=== PATIENT | female | born 1970 | race Caucasian/White ===

== ENCOUNTER 2018-12-13 11:01 | Observation (INO) | payer OTHER, SELFPAY ==
[2018-12-13 11:02] VITALS: BP 147/91; PULSE 94; RESP 17; TEMP 36.8; O2SAT 96; BMI 39.0
--- NOTE | 2018-12-13 12:05 | CT_ITS ---
STUDY: CT ABDOMEN AND PELVIS WITHOUT CONTRAST REASON FOR EXAM: Female, 48 years old. Left flank pain. RADIATION DOSAGE (If Supplied By Facility): CTDIvol = ( 14.80 ) mGy, DLP = ( 725.88 ) mGycm TECHNIQUE: Transaxial images were obtained from the dome of the diaphragm to the symphysis pubis without oral contrast, and without intravenous contrast. Sagittal and coronal images were reconstructed. Individualized dose optimization techniques were used for this CT. COMPARISON: None. FINDINGS: The visualized lung bases are unremarkable. The visualized portions of the heart are within normal limits. Normal liver. Normal gallbladder and extrahepatic biliary system. Normal spleen. Normal pancreas. Normal bilateral adrenal glands. Normal right kidney. There is a 1.5 cm x 0.8 cm calculus in the left renal pelvis causing a mild degree of left hydronephrosis. There is a small hiatal hernia. Normal small intestine. Normal colon. The appendix is visualized and appears normal. Normal abdominal aorta. Normal inferior vena cava. There is borderline retroperitoneal lymphadenopathy with enlarged nodes no greater than 10mm in the short axis diameter. Normal urinary bladder. Normal abdominal wall. Disc space narrowing at the L5-S1 level with spondylolysis. Mild anterior spondylosis at the L3-L4 level. CT/Abdomen/Pelvis without Cont IMPRESSION: 1.5 cm x 0.8 cm calculus in the left renal pelvis causing mild degree of left hydronephrosis. Electronically Signed: Rick Virgen, at 13:20 EDT , Service support ,
[2018-12-13] MEDS: 0.9% Normal Saline 1,000 ML 1000 ML IV (12:10)
[2018-12-13 12:28] LABS: Bacteria 0 SEEN /hpf (None Seen); Mucous, Urine 0 SEEN /hpf (<or=2+)
[2018-12-13 12:28] LABS: Absolute Neutrophil Count 6.1 X10^3/uL (2.0-7.7); Basophil# 0.05 X10^3/uL; Basophil% 0.5 % (0-1); Eosinophil# 0.22 X10^3/uL; Eosinophils% 2.3 % (0-5); Hematocrit 39.8 % (37-47); Hemoglobin 12.6 g/dL (12.0-15.0); Lymphocyte % 25.5 % (19-41); Mean Corp Hgb Conc 31.7 g/dL (32-36); Mean Corpuscular Hgb 26.3 pg (27.0-32.0); Mean Corpuscular Volume 83.1 fL (81-99); Mean Platelet Vol. 8.2 fl (6.2-12.0); Monocyte# 0.56 X10^3/uL; NRBC Flagged by Analyzer 0 % (0-5); Neutrophil # 6.13 X10^3/uL (2.7-7.7); Neutrophil % 65.2 % (47-70); Platelet Count 419 K/mm3 (150-450); RBC Distribution Width CV 13.3 % (11.6-14.6); RBC Distribution Width SD 40.6 fl (35.1-43.9); Red Blood Count 4.79 M/mm3 (4.2-5.4); White Blood Count 9.4 K/mm3 (4.4-11.0)
[2018-12-13 12:32] LABS: Color, Urine Yellow (Yellow); Glucose, Dipstick 100 mg/dl (Normal); Ketone-Dipstick Negative (Negative); Leukocyte Esterase-Dipstick 25 /ul (Negative); Nitrite-Dipstick Negative (Negative); Occult Blood-Urine 150 /ul (Negative); Protein-Dipstick 15 mg/dl (Negative); Urine Bilirubin Dipstick Negative (Negative); Urine Clarity Clear (Clear); Urine Urobilinogen Normal (Normal)
[2018-12-13 12:41] LABS: Red Blood Cells-Urine 0-5 SEEN /hpf (0-5); Squamous Epithelial Cells - UA 5-10 SEEN /hpf (5-10)
[2018-12-13 12:42] LABS: White Blood Cells 0-5 SEEN /hpf (0-5)
[2018-12-13 12:42] LABS: AST(SGOT) 8 U/L (15-37); Alanine Aminotransfer ALT/SGPT 16 U/L (13-56); Albumin, Serum 2.9 g/dL (3.2-5.0); Alkaline Phosphatase 86 U/L (45-117); Anion Gap 5 (5-15); BUN 10 mg/dL (7-18); BUN/Creat Ratio 12.4 RATIO (10-20); Bilirubin, Direct 0.07 mg/dL (0.00-0.30); Calcium,Total 8.8 mg/dL (8.5-10.1); Chloride 105 mmol/L (98-107); Creatinine, Serum 0.81 mg/dL (0.55-1.02); EST Glomerular Filtration Rate 81 mL/min (>60); Est Glom Filt Rate - Afr Amer 98 mL/min (>60); Estimated Creatinine Clearance 71.79 ml/min; Globulin 3.8 g/dL (2.2-4.2); Glucose 164 mg/dL (74-106); Lipase 124 U/L (73-393); Potassium 3.9 mmol/L (3.5-5.1); Protein, Total 6.7 g/dL (6.4-8.2); Sodium Level 137 mmol/L (136-145)
[2018-12-13 12:45] LABS: Internal QC Validated? YES +Cl - CLEAR BKGD; Pregnancy, Urine Negative Negative
[2018-12-13 13:24] VITALS: RESP 18
[2018-12-13 15:16] VITALS: BMI 39.0
[2018-12-13 15:20] VITALS: BMI 39.1
--- NOTE | 2018-12-13 16:09 | ED.DCSUM_ITS ---
- ER Visit Summary Date of Service: 12/13/18 Chief Complaint: Left flank pain History of Present Illness: The patient is a 48 F who states that he had on Monday she had a discomfort in the left upper abdomen left flank. Did not really radiate anywhere else. Made her nauseous and she described it more as a stabbing pain. Better Monday and Monday but by today to come back and was significantly worse. No fevers no urinary symptoms no diarrhea that is out of the ordinary for her. She has a history of Crohn's. History of tonsillectomy. No history of kidney stones. Physical Examination: Afebrile vital signs stable Gen: Well-nourished well-developed Head: Normocephalic atraumatic Eyes: Perrl EOMI ENT: TMs clear no rhinorrhea moist mucous membranes Neck: Supple no lymphadenopathy no JVD nontender CVS: Regular rate rhythm no murmurs normal S1-S2 Respiratory: No distress clear to auscultation bilaterally chest nontender Abdomen: Soft mildly tender in left upper quadrant but does not reproduce her pain nondistended normal bowel sounds no masses Back: Nontender Extremity: Nontender no edema Skin: Normal color no rash Neuro: alert orientated ?3 CN II-XII intact normal strength sensation reflexes gait cerebellar Psych: Normal affect normal mood Test Results: CBC BMP showed glucose of 164. Liver lipase normal. Urinalysis showed 5-10 epithelial cells otherwise negative. test negative. CT abdomen pelvis demonstrated 1.5 cm x 0.5 cm kidney stone in the renal pelvis with associated hydronephrosis. Emergency Department Course and Treatment: Patient received IV fluids but declined pain medication. I spoke with Dr. Christine will admit the patient tonight plan on having surgery tomorrow. Patient is comfortable with this plan. Impression: 1. Left kidney stone with hydronephrosis This note was generated with [employer] dictation software. It may contain incorrect words, spelling, and punctuation that were not noted in review of the chart prior to signing ED Disposition - Plan for ED Patient: Disposition: Acute [facility]
[2018-12-13 16:12] VITALS: BP 134/80; PULSE 75; RESP 18; TEMP 36.7; O2SAT 100
--- NOTE | 2018-12-13 17:25 | PCM.HP.STD ---
History of Present Illness Date of Admission: 12/13/18 Chief Complaint: Left kidney stone 1.5 cm in size The patient is a 48 year old female with a 1.5 x 8 mm stone in the left renal pelvis admitted for obstruction and pain. Plan for surgery tomorrow for obstructing kidney stone. No signs of infection. 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 Lives: Spouse/ Significant Other Smoking Status: Never smoker Tobacco Use: Secondhand Alcohol: None Drugs: None - *Family History Maternal History Items: No pertinent history Review of Systems Constitutional: Denies: Chills, Fever, Weight Change HEENT: Denies: Head Aches, Sinus Congestion, Sinus Drainage Cardiovascular: Denies: Chest Pain, Palpitations Respiratory: Denies: Cough, Shortness of breath at rest, Sputum production Gastrointestinal: Denies: Abdominal Pain, Nausea, Vomiting Genitourinary: Denies: Dysuria Musculoskeletal: Denies: Joint Pain, Joint Tenderness Skin: Denies: Rash, Wounds Neurological: Denies: Numbness, Tingling, Focal weakness Psychiatric: Denies: Anxiety, Depression, Homicidal Ideations, Suicidal Ideations Hematologic/ Lymphatic: Denies: Easy Bruising, Easy Bleeding VTE Information - Inpt Only VTE Present on Admission: No VTE Mechan Device Prophylaxis: SCD's - Physical Exam General: Alert, Oriented x3, Cooperative HEENT: Atraumatic, PERRLA, EOMI, Normocephalic Neck: Supple, No JVD, Negative Carotid Bruits Lungs: Clear to auscultation, Normal air movement Cardiovascular: Regular rate, No murmurs Abdomen: Bowel Sounds Present, Soft, Non Tender Extremities: No edema, Capillary Refill Less than 3 Seconds Skin: No rashes, No breakdown Musculoskeletal: No Tenderness to Palpation of Joints or Extremities Neurological: Cranial nerves II-XII grossly intact Psych/Mental Status: Normal Affect, Appropriate Vital Signs Temp Pulse Resp BP Pulse Ox 98.1 F 75 18 134/80 H 100 12/13/18 16:12 12/13/18 16:12 12/13/18 16:12 12/13/18 16:12 12/13/18 16:12 Oxygen Delivery Method Room Air Weight: 100.244 kg Body Mass Index (BMI) 39.1 Intake and Output for Last 24 Hours 12/11/18 12/12/18 12/13/18 23:59 23:59 23:59 Intake Total 1000 / 1000 Balance 1000 / 1000 Laboratory Tests Past 24 Hrs 12/13/18 12/13/18 12/13/18 11:50 11:50 11:58 WBC 9.4 RBC 4.79 Hgb 12.6 Hct 39.8 MCV 83.1 MCH 26.3 L MCHC 31.7 L RDW Std Deviation 40.6 RDW Coeff of Efra 13.3 Plt Count 419 MPV 8.2 Immature Gran % (Auto) 0.500 Neut % (Auto) 65.2 Lymph % (Auto) 25.5 [place] % (Auto) 6.0 Eos % (Auto) 2.3 Baso % (Auto) 0.5 Absolute Neuts (auto) 6.1 Absolute Lymphs (auto) 2.40 Nucleated RBC % 0 Sodium 137 Potassium 3.9 Chloride 105 Carbon Dioxide 27.0 Anion Gap 5 BUN 10 Creatinine 0.81 Estim Creat Clear Calc 71.79 Est GFR (MDRD) Af Amer 98 Est GFR (MDRD) Non-Af 81 BUN/Creatinine Ratio 12.4 Glucose 164 H Calcium 8.8 Total Bilirubin 0.40 Direct Bilirubin 0.07 AST 8 L ALT 16 Alkaline Phosphatase 86 Total Protein 6.7 Albumin 2.9 L Globulin 3.8 Lipase 124 Urine Color Yellow Urine Clarity Clear Urine pH 5.0 Ur Specific [place] 1.020 Urine Protein 15 H Urine Glucose (UA) 100 H Urine Ketones Negative Urine Occult Blood 150 H Urine Nitrite Negative Urine Bilirubin Negative Urine Urobilinogen Normal Ur Leukocyte Esterase 25 H Urine RBC 0-5 SEEN Urine WBC 0-5 SEEN Ur Squamous Epith Cells 5-10 SEEN Urine Bacteria 0 SEEN Urine Mucus 0 SEEN Urine Test 12/13/18 12:30 WBC RBC Hgb Hct MCV MCH MCHC RDW Std Deviation RDW Coeff of Efra Plt Count MPV Immature Gran % (Auto) Neut % (Auto) Lymph % (Auto) [place] % (Auto) Eos % (Auto) Baso % (Auto) Absolute Neuts (auto) Absolute Lymphs (auto) Nucleated RBC % Sodium Potassium Chloride Carbon Dioxide Anion Gap BUN Creatinine Estim Creat Clear Calc Est GFR (MDRD) Af Amer Est GFR (MDRD) Non-Af BUN/Creatinine Ratio Glucose Calcium Total Bilirubin Direct Bilirubin AST ALT Alkaline Phosphatase Total Protein Albumin Globulin Lipase Urine Color Urine Clarity Urine pH Ur Specific [place] Urine Protein Urine Glucose (UA) Urine Ketones Urine Occult Blood Urine Nitrite Urine Bilirubin Urine Urobilinogen Ur Leukocyte Esterase Urine RBC Urine WBC Ur Squamous Epith Cells Urine Bacteria Urine Mucus Urine Test Negative Assessment/Plan 48-year-old female with history of Crohn's admitted for a large 1.5 x 8 mm stone in the left renal pelvis causing hydronephrosis and obstruction. Plan to take her surgery tomorrow for cystoscopy left stent placement left ESWL she understands it is fairly large stone is possible may take more than one procedure we talked about how shockwave lithotripsy is done and talked about other options including ureteroscopy and percutaneous approaches. She agreed to proceed with shockwave lithotripsy to be set up for tomorrow morning and surgery. N.p.o. at midnight consent form will be obtained.
[2018-12-13] MEDS: 0.9% Normal Saline 1,000 ML 75 ML IV (17:55)
[2018-12-13] MEDS: HYDROcodone Bitartrate/Apap 5/325 Tablet PO (18:02)
[2018-12-13 21:07] VITALS: O2SAT 99
[2018-12-13 21:20] VITALS: BP 124/95; PULSE 76; RESP 18; TEMP 36.6; O2SAT 95
[2018-12-14] VITALS (8 sets, daily range): BP systolic 92–133; BP diastolic 63–93; PULSE 68–80; RESP 16–18; TEMP 36.1–36.7; O2SAT 91–99; BMI 39.2
[2018-12-14] MEDS: 0.9% NaCl Peripheral Flush Adult/Peds IV (00:29)
--- NOTE | 2018-12-14 05:55 | EKG12_ITS ---
Test Reason : AM EKG Blood Pressure : / mmHG Vent. Rate : 068 BPM Atrial Rate : 068 BPM P-R Int : 142 ms QRS Dur : 128 ms QT Int : 416 ms P-R-T Axes : 038 -22 007 degrees QTc Int : 442 ms Sinus rhythm with marked sinus arrhythmia Right bundle branch block Abnormal ECG Confirmed by STAN WALSH, HIMA ([id number]), online content editor ISH KO ([id number]) on 12/19/2018 11:07:17 AM Referred By: Benny Christine Confirmed By:HIMA PIERCE MD
[2018-12-14] MEDS: 0.9% Normal Saline 1,000 ML 75 ML IV (06:20)
--- NOTE | 2018-12-14 09:27 | NURSING ---
called report to Joyce in AC at this time.
[2018-12-14] MEDS: Ciprofloxacin 400 MG/200 ML BAG 200 MG IV (10:58)
--- NOTE | 2018-12-14 11:23 | PCM.DC.URO ---
Discharge Diet: Light diet - advance as tolerated Discharge Activity: Return to Normal Activity Call your doctor if your incision/area has: Continuous Slow Oozing, Sudden Increased Bleeding, Increased Pain/ Swelling, Increased Redness Suture Line Care: Avoid Pulling/Pushing, Avoid Pinching/Bending Allergies/Adverse Reactions: Allergies iodine Allergy (Verified 12/13/18 11:02) Swelling Penicillins [PCN] Allergy (Verified 12/13/18 11:02) Swelling Sulfa (Sulfonamide Antibiotics) Allergy (Verified 12/13/18 11:02) Swelling Medications to take at Discharge Ciprofloxacin [Cipro] 500 mg PO BID #6 tab 12/14/18 Hydrocodone/Acetaminophen [[place] 5-325 Tablet] 1 ea PO Q4H PRN PRN #14 tab 12/14/18 Primary Care Physician: Buzz Shane III, MD [Primary Care Provider] - Test Results: Test results from this visit will be discussed in further detail at your follow-up appointment, if applicable. Please Follow Up With: Benny Christine MD When: please call to make an appointment.
--- NOTE | 2018-12-14 11:44 | OP.PCM_ITS ---
Report of Operation Date of Procedure: 12/14/18 Pre-Operative Diagnosis: Left renal calculi Post-Operative Diagnosis: Same Surgery/Procedure Performed:: Cystoscopy left stent placement and left extracorporeal shockwave lithotripsy Description of Surgical Findings:: 48-year-old female taken back to the operating room after smooth induction of anesthesia she was placed in supine position and then dorsolithotomy position, I went into the bladder with a 21 [place] rigid cystourethroscope, the urethra vaginal area prepped and draped in usual fashion. I then cannulated the left ureteral orifice with a Glidewire advance a wire up into the kidney past the stone in the kidney and then over the wire advanced a stent, it was a 6 [place] by 26 cm stent but the string of the stent once the string and stent were in good position I pulled the wire. We then repositioned the patient on the lithotripter table we treated the stone in the left renal pelvis with shockwave lithotripsy after a total of 3000 shockwaves stone it broken up really well to small pieces that we could hardly see anymore and fluoroscopy we monitored the stone during the entire breakage time and a total of 3000 shockwaves were given a rate of 90, kilovolts of 7. After the treatment was done the patient's anesthetic was reversed to take back to PACU good condition we will see her next week with an x-ray and possible stent removal. Type of Anesthesia:: General Drains: stent left - Admit VTE Documentation VTE Present on Admission: No VTE Mechan Device Prophylaxis: SCD's
--- NOTE | 2018-12-14 15:03 | CHAPLAIN ---
Type of Pastoral Visit _x__ Initial Visit ___ Follow-up Visit ___ On-call Visit ___ General Patient Visit ___ Spiritual Assessment ___ Family Conference ___ Bereavement ___ Rapid Response ___ Code Blue ___ Other (describe below) Pastoral Care Referral From _x__ Patient ___ Family ___ Nurse ___ Physician ___ Framer ___ Cellular Phone Repairer ___ Other (describe below) Sacrament/Intervention _x__ Active listening ___ Anointing ___ Jainism ___ Bereavement ___ Communion _x__ Caterina exploration ___ ___ Life review _x__ Prayer ___ Reconciliation ___ Sacrament of Sick ___ Supportive presence ___ Wedding ___ Other (describe below) Pastoral Comments
== END 2018-12-14 15:20 | disposition home or self-care (01) ==
LOC: ED 13:08 → MS3 15:12
PROVIDERS: Admitting Provider Urology; Emergency Provider Emergency Medicine; Family Provider Family Medicine; PCP Family Medicine; Visit Provider Urology
PROC: (CPT 50590; principal; 2018-12-14 10:30)
DX: N13.2 Hydronephrosis with renal and ureteral calculous obstruction (principal); K50.90 Crohn's disease, unspecified, without complications
CPT/HCPCS: 00873; 50590; 74176; 80048; 80076; 81001; 81025; 83690; 85025; 93005; 96361; 96365; 99218; 99284; J7030; A4216; C1769; C2617; G0378; J0744; J2405

== ENCOUNTER → 2018-12-18 12:50 | Outpatient (CLI) | payer OTHER, SELFPAY ==
[2018-12-14 06:21] VITALS: BMI 39.2
--- NOTE | 2018-12-18 13:04 | RAD_ITS ---
STUDY: X-RAY - ABDOMEN/PELVIS REASON FOR EXAM: Female, 48 years old. Flank pain TECHNIQUE: Single AP view of the abdomen / pelvis. COMPARISON: None. FINDINGS: Left-sided JJ stent noted in satisfactory position. There are poorly defined calcifications overlying the lower pole of the left kidney likely sequela from lithotripsy. There are calcifications in the proximal left ureter along the course of the stent. There is an unremarkable bowel gas pattern. There is no demonstrated free abdominal air. The visualized liver, spleen and kidneys are grossly normal in size and morphology. Normal soft tissue structures. Normal visualized osseous structures. RAD/Abdomen Single View IMPRESSION: Satisfactory positioning of a left JJ stent Poorly defined calcifications in the proximal left ureter along the stent likely from recent lithotripsy Poorly defined calcifications in the lower pole of the left kidney also likely from lithotripsy Electronically Signed: Aaron Amaro MD at 13:38 EDT , Service support ,
== END ==
PROVIDERS: Family Provider Family Medicine; PCP Family Medicine; Referring Provider Urology; Visit Provider Urology
DX: N20.0 Calculus of kidney (principal)
CPT/HCPCS: 74018

== ENCOUNTER 2020-07-22 08:10 | Day surgery (SDC) | payer OTHER, SELFPAY ==
[2018-12-14 06:21] VITALS: BMI 39.2
--- NOTE | 2020-07-18 19:19 | PCM.HP.BLA ---
History and Physical Date of Admission: 07/22/20 HISTORY AND PHYSICAL ? Mariangel Santana 1970 ? REFERRING PHYSICIAN: Buzz Shane III, MD ? CHIEF COMPLAINT: Consult (Colonoscopy) ? HPI: The patient is a 49 year old female referred for endoscopy. Mariangel notes a history of Crohn's disease and is due for surveillance upper and lower endoscopy. Patient NOTES chronic loose stools and sometimes GERD. ? Mariangel has undergone prior endoscopy. Most recent endoscopy was performed by Dr. Rivera 12/31/14 with 5 year repeat recommended. Most recent endoscopy procedures done under Monitored Anesthetic Care. Patient states that was done as she has experienced extreme nausea and vomiting with conscious sedation for prior endoscopy procedures. ? PAST MEDICAL HISTORY PAST MEDICAL HISTORY Diagnosis Date ? Anal fistula 2007 ? Bilateral ovarian cysts 11/02/2011 ? Crohn's disease (HCC) 09/2009 ? Diarrhea ? ? Dysmetabolic syndrome X 08/05/2010 ? Esophageal reflux ? ? Hyperlipidemia LDL goal <130 08/18/2016 ? ASHLYN (obstructive sleep apnea) ? ? AutoPAP 5/15 cm [facility] ? Other disorder of muscle, ligament, and fascia ? ? Regional enteritis of unspecified site ? ? ? PAST SURGICAL HISTORY PAST SURGICAL HISTORY Procedure Laterality Date ? COLONOSCOP W/ OR W/O BRSH SPEC ? 11/27/2009 ? Colonoscopy ? COLONOSCOP W/ OR W/O BRS SPEC ? 12/31/2014 ? Colonoscopy ? CYSTOSCOPY Left 12/14/2018 ? stent placement ? EGD ? 12/31/2014 ? LITHOTRIPSY / 1 SIDE Left 12/14/2018 ? extracorporeal shockwave ? PAST SURGICAL HISTORY OF ? ? ? NASAL FX REPAIR ? REMOVAL ANAL FISTULA,SUBCUTANEOUS ? 07/09/07 03/02/11 ? STEREOTACTIC CORE BIOPSY ? 10/03/06 ? right ? ? ? CURRENT MEDICATIONS Current Outpatient Medications Medication Sig ? naproxen (NAPROSYN) 500 mg tablet Take 1 tablet by mouth twice daily as needed for Pain. Take with food. ? cyclobenzaprine (FLEXERIL) 10 mg tablet Take 1 tablet by mouth three times daily as needed. ? CPAP AutoPAP 5-15 cmH2O, suitable mask, humidity, filters. Lifetime supplies. Dx: G47.33 (Patient not taking: Reported on 02/14/2020 ) ? Mesalamine (PENTASA) 500 mg CR capsule Take 2 capsules by mouth four times daily. (Patient not taking: Reported on 02/14/2020 ) ? No current facility-administered medications for this visit. ? ? ALLERGIES: Iodine [Contrast Dye], Penicillins, and Sulfa (Sulfonamide Antibiotics) ? PERSONAL HISTORY: SOCIAL HISTORY Social History ? Tobacco Use ? Smoking status: Never Smoker ? Smokeless tobacco: Never Used ? Tobacco comment: occasional tobacco use in [employer]. Substance Use Topics ? Alcohol use: No ? Drug use: No ? ? Comment: ? FAMILY HISTORY: FAMILY HISTORY FAMILY HISTORY Problem Relation Age of Onset ? Hypertension Mother ? ? Coronary Artery Disease Father ? ? Diabetes Father ? ? other (gout) Father ? ? Diabetes Maternal Grandmother ? ? Heart Maternal Grandmother ? ? Cancer Paternal Grandmother ? ? breast ? ? REVIEW OF SYMPTOMS: The review of systems data was entered by the nurse and reviewed by me ? Nursing Notes: Marisa Chris MCKEON 07/08/2020 1:09 PM Signed REVIEW OF SYSTEMS: General: The patient NOTES fatigue, NOTES weight loss, denies weight gain, denies feeling hot, and denies feelings of cold. Eyes: The patient denies glaucoma, denies eye injury/surgery, does not wear glasses or contacts. Ear/Nose/Throat: The patient denies allergies, denies hayfever, denies ear infections, and denies bloody noses. Cardiovascular: The patient denies chest pain, denies heart disease, denies high blood pressure,denies cardiac stent, denies prior heart attack, denies irregular heart beat, denies high cholesterol, denies poor circulation, denies heart failure, other cardiac issues, denies claudication, denies cold feet, denies peripheral arterial stent. Respiratory: The patient denies tuberculosis, denies pneumonia, denies frequent cough, denies pulmonary embolism, denies shortness of breath, and denies coughing up blood. Gastrointestinal: The patient denies difficulty swallowing, denies acid reflux, denies ulcers, denies vomiting, denies jaundice/hepatitis, denies gallbladder problems, denies black or tarry stools, denies hemorrhoids, denies bleeding from rectum, denies diverticulitis, denies constipation, denies diarrhea, NOTES loss of stool control, and denies hernias. Kidney/Bladder: The patient NOTES kidney stones, denies urine infections, and denies bloody urine. Skin: The patient denies a history of skin cancer, denies bleeding/changing moles, and denies a history of skin rash. Neurologic: The patient denies a history of epilepsy/convulsions, denies headaches, denies head/spinal injuries, and denies stroke/TIA. Psychiatric: The patient denies psychiatric medications, denies depression, and denies voices, denies substance abuse. Endocrine: The patient denies thyroid disorders, denies diabetes, and denies hormonal problems. Hematologic: The patient denies a history of bruising, denies bleeding, and denies anemia, denies blood clots. Infections: The patient denies a history of measles and mumps, denies rheumatic fever, and denies sexually transmitted diseases. Musculoskeletal: The patient NOTES back pain/injury, denies back problems, denies sciatica, denies knee/foot trouble, denies arthritis, or denies gout. ? ? When was patient's last Mammogram screening? 2019 ? Last Colonoscopy: 2014 ? Marisa Perez LPN I have confirmed and edited as necessary, the PFSH and ROS obtained by others. ? PHYSICAL EXAMINATION: ? General: The patient is 49 year old female, well nourished, well hydrated in no acute distress. The patient is oriented to time, place, and person. ? VITALS: Blood pressure 142/84, pulse 120, temperature 36.6 ?C (97.9 ?F), height 160 cm (5' 3), weight 98.4 kg (217 lb), last menstrual period 11/27/2019, SpO2 99 %. Body mass index is 38.44 kg/m?. ? HEENT: Normal cephalic, ataumatic, pupils are equally round, sclera are anicteric, mucous membranes are moist, oropharynx is clear. Neck has no masses, asymmetry or lymphadenopathy. ? Respiratory: Clear to auscultation and percussion. Normal respiratory excursion and pattern. ? Cardiac: Examination is regular rate and rhythm. Normal S1/S2 ? Abdominal exam: Soft, nontender, with no palpable masses. No hepatosplenomegaly. No palpable hernias. ? Extremities: no clubbing, cyanosis or edema. No adenopathy. ? LABORATORY VALUES: As Noted ? RADIOLOGIC STUDIES: As Noted ? Assessment IMPRESSION: Crohn's disease, encounter for upper and lower endoscopy ? PLAN: I have reviewed my findings with the surgeon. Will plan for upper and lower endoscopy. We discussed the risks and benefits of the planned endoscopy. I have informed the patient that complications can occur including failure to complete the endoscopy and perforation. The patient had the opportunity to ask questions concerning the planned endoscopy. My staff has also explained the procedure to the patient in understandable terms and has given the patient printed material concerning the procedure. The patient freely consents to surgery. ? The patient was offered a surgery/procedure at a [facility]. I have counseled the patient regarding the risk of exposure to and/or potential harm posed by the COVID-19 virus with having a surgery/procedure at this time versus the risk of? delaying the surgery/procedure. It is not possible to know either the risk of delaying the surgery or procedure or chance of getting an infection with perfect accuracy, but a joint decision was made between the patient and myself?to proceed at this time with endoscopy. ? ? ? I plan to use Miralax bowel preparation ? We will plan for Monitored Anesthetic Care. ? ? ? Diagnoses: (Z12.11) Screening for colon cancer (K50.80) Crohn's disease of both small and large intestine without complication (HCC) ? I spent a total of 30 minutes on the date of the service which included preparing to see the patient, [id number] patient care, completing clinical documentation, obtaining and/or reviewing separately obtained history, performing a medically appropriate examination, counseling and educating the patient/family/caregiver and communicating with other HCPs (not separately reported). ? Dang Canales PA-C
[2020-07-22] VITALS (7 sets, daily range): BP systolic 94–134; BP diastolic 55–90; PULSE 63–88; RESP 16–18; TEMP 36.1–36.4; O2SAT 97–100; BMI 37.5
--- NOTE | 2020-07-22 | GASB_PTH ---
PATIENT: SEFERINO HOLLINGSWORTH LOC: EN U#:[id number] AGE/SX: 49/F ROOM: RE07/22/[address]: Dr. Lupe Alfonso MD : 1970 BED: DIS: 07/22/2020 SPEC #: [id number] RECD: 07/22/20 12:12 STATUS: GEOFF REQ #: [id number] CHRISTIAN: 07/22/20 00:[address]: Lupe Alfonso DEPT: SURGICAL PATHOLOGY RECD BY: Jair Rojas ENTERED: 07/22/20 12:12 SP TYPE: Gastric Bx SAMEER DR: Dr. Buzz Shane III, MD Tissues: A - Gastric mucous membrane B - Gastric mucous membrane Procedures: Special Stain Group II Surgery Specimen Level IV Alcian Blue/PAS (control) HEADER OPERATION: Colonoscopy, EGD ([facility] [place]) PRE-OP DIAGNOSIS: Crohn?s disease TISSUE SUBMITTED: A ? Antrum biopsy for H. pylori and path, B ? GE junction biopsy MICROSCOPIC DIAGNOSIS A. Gastric antrum, biopsy: Chronic gastritis. See comment. B. Gastroesophageal junction, biopsy: Gastric mucosa with mild chronic inflammation. Fragment of benign squamous mucosa. No evidence of goblet cell metaplasia. See comment. AM:sadie 07/23/2020 COMMENT A. The results of immunohistochemistry for Helicobacter pylori will be reported separately ([id number]). B. Alcian blue/PAS stain with matched control supports the above diagnosis. Features of Crohn?s enteritis are not present. Clinical correlation is suggested. MICROSCOPIC DESCRIPTION Slides are reviewed. GROSS DESCRIPTION A - Received in fixative is one container labeled with the patient's name and designated antrum biopsy. The specimen consists of one irregular fragment of light rankin soft tissue that measures 0.3 x 0.2 x 0.1 cm. The specimen is totally submitted in one cassette. B - Received in fixative is one container labeled with the patient's name and designated GE junction biopsy. The specimen consists of two irregular fragments of light rankin soft tissue that in aggregate measure 0.5 x 0.2 x 0.1 cm. The specimen is totally submitted in one cassette. / DEMETRIO:sadie 07/22/20 TC:3 CPT: 66865 x2, 94071
[2020-07-22 08:48] LABS: Internal QC Validated? YES +Cl - CLEAR BKGD; Pregnancy, Urine Negative Negative
[2020-07-22] MEDS: Lactated Ringers 1,000 ML 100 ML IV (08:49)
--- NOTE | 2020-07-22 09:15 | IMM_PTH ---
PATIENT: SEFERINO HOLLINGSWORTH LOC: EN U#:[id number] AGE/SX: 49/F ROOM: RE07/22/[address]: Dr. Lupe Alfonso MD : 1970 BED: DIS: 07/22/2020 SPEC #: [id number] RECD: 07/22/20 13:21 STATUS: GEOFF REQ #: [id number] CHRISTIAN: 07/22/20 09:[address]: Lupe Alfonso DEPT: IMMUNOHISTOCHEMISTRY RECD BY: Alicia Catalan ENTERED: 07/22/20 13:22 SP TYPE: IMMUNO OTHR DR: Dr. Buzz Shane III, MD Tissues: A - Stomach, NOS Procedures: H Pylori (initial) PHYSICIAN & INSTITUTION [place] [address] SPECIMEN INFORMATION: Tissue Source: A ? Antrum biopsy Clinical Info: Crohn?s disease Specimen Number: [id number] CPT code: 06340 METHODOLOGY: Deparaffinized sections of prefer/formalin-fixed tissue or PAP/DQ stained slides are incubated with monoclonal/polyclonal antibodies/oligonucleotide probes. Localization is made via biotin free immunoperoxidase method. Appropriate controls are performed and reacted as expected. Results on target cell population are indicated in the following table: RESULTS: ANTIBODY / CLONE RESULT Block A H Pylori (polyclonal) negative These tests were developed and their performance characteristics determined by [facility]. They may not have been cleared or approved by the U.S. Food and Drug Administration. The FDA has determined that such clearance or approval is not necessary. INTERPRETATION: A. Antrum biopsy: Negative for Helicobacter pylori organisms. AM:sadie 07/23/2020
--- NOTE | 2020-07-22 09:48 | OP.CCLET_ITS ---
07/22/2020 Buzz Shane [address] [place] [address] Re : Upper GI endoscopy procedure for Mariangel Santana Dear Dr. Shane This procedure was performed on Wednesday, July 22, 2020. My impressions and recommendations are as follows: Impressions : - Normal first portion of the duodenum and second portion of the duodenum. - Erythematous mucosa in the antrum. Biopsied. - Z-line irregular. - Small hiatal hernia. Biopsied (see above). Recommendations : - Await pathology results. - Follow up visit via telemedicine with Dang Canales PA-C to discuss results. Call to set this up, thank you - Continue present medications. My findings are described in the full procedure note, which is enclosed. If I can be of further assistance, please feel free to contact me at Doctor phone number(s): , Work: . Sincerely, MD Lupe Naranjo MD 07/22/2020 9:48:04 AM This report has been signed electronically.
--- NOTE | 2020-07-22 09:48 | OP.EGD_ITS ---
Patient Name: Mariangel Santana Procedure Date: 07/22/2020 9:19 AM Date of : 1970 Age: 49 Procedure: Upper GI endoscopy Indications: Suspected esophageal reflux Providers: Lupe Alfonso MD Referring MD: Buzz Shane Iii Medicines: See the Anesthesia note for documentation of the administered medications Patient Profile: Refer to note in patient chart for documentation of history and physical. Complications: No immediate complications. Procedure: Pre-Anesthesia Assessment: - see anesthesia note After obtaining informed consent, the endoscope was passed under direct vision. Throughout the procedure, the patient's blood pressure, pulse, and oxygen saturations were monitored continuously. The gastroscope was introduced through the mouth, and advanced to the second part of duodenum. The upper GI endoscopy was accomplished without difficulty. The patient tolerated the procedure well. Scope In: 9:24:43 AM Scope Out: 9:30:12 AM Total Procedure Duration Time 0 hours 5 minutes 29 seconds Findings: The first portion of the duodenum and second portion of the duodenum were normal. Striped mildly erythematous mucosa without bleeding was found in the gastric antrum. Biopsies were taken with a cold forceps for histology. Estimated blood loss was minimal. The Z-line was irregular. A very small hiatal hernia was present. Biopsies were taken of the z line with a cold forceps for histology. Verification of patient identification for the specimen was done by the deburring technician. Impression: - Normal first portion of the duodenum and second portion of the duodenum. - Erythematous mucosa in the antrum. Biopsied. - Z-line irregular. - Small hiatal hernia. Biopsied (see above). Recommendation: - Await pathology results. - Follow up visit via telemedicine with Dang Canales PA-C to discuss results. Call to set this up, thank you - Continue present medications. Procedure Code(s): --- Professional --- 50003, Esophagogastroduodenoscopy, flexible, transoral; with biopsy, single or multiple Diagnosis Code(s): --- Professional --- K31.89, Other diseases of stomach and duodenum K22.8, Other specified diseases of esophagus K44.9, Diaphragmatic hernia without obstruction or gangrene CPT copyright 2017 [employer]. All rights reserved. The codes documented in this report are preliminary and upon jewelry maker review may be revised to meet current compliance requirements. MD Lupe Naranjo MD 07/22/2020 9:48:04 AM This report has been signed electronically. Number of Addenda: 0 Note Initiated On: 07/22/2020 9:19 AM
--- NOTE | 2020-07-22 09:52 | OP.CCLET_ITS ---
07/22/2020 Buzz Shane [address] [place] [address] Re : Colonoscopy procedure for Mariangel Santana Dear Dr. Shane This procedure was performed on Wednesday, July 22, 2020. My impressions and recommendations are as follows: Impressions : - Non-bleeding external and internal hemorrhoids. - No specimens collected. Recommendations : - Repeat colonoscopy as per ACS guidelines for screening for colon cancer. - Follow up visit via telemedicine with Dang Canales PA-C to discuss results. Call to set this up, thank you - Continue present medications. My findings are described in the full procedure note, which is enclosed. If I can be of further assistance, please feel free to contact me at Doctor phone number(s): , Work: . Sincerely, MD Lupe Naranjo MD 07/22/2020 9:51:36 AM This report has been signed electronically.
--- NOTE | 2020-07-22 09:52 | OP.COLON_ITS ---
Patient Name: Mariangel Santana Procedure Date: 07/22/2020 9:31 AM Date of : 1970 Age: 49 Procedure: Colonoscopy Indications: High risk colon cancer surveillance: Crohn's disease Providers: Lupe Alfonso MD Referring MD: Buzz Shane Iii Medicines: See the Anesthesia note for documentation of the administered medications Patient Profile: Refer to note in patient chart for documentation of history and physical. Last Colonoscopy: 5 years ago. Complications: No immediate complications. Procedure: Pre-Anesthesia Assessment: - see anesthesia note After I obtained informed consent, the scope was passed under direct vision. Throughout the procedure, the patient's blood pressure, pulse, and oxygen saturations were monitored continuously. The colonoscope was introduced through the anus and advanced to the cecum, identified by the appendiceal orifice, ileocecal valve and palpation. The colonoscopy was performed without difficulty. The patient tolerated the procedure well. The quality of the bowel preparation was poor, there was still retained fecal material. Therefore lavage and aspiration was done to clear the fecal material. This took some time. The hector were cleared adequately. Scope In: 9:32:58 AM Scope Withdrawal Time 0 hours 8 minutes 53 seconds Scope Out: 9:43:55 AM Total Procedure Duration Time 0 hours 10 minutes 57 seconds Findings: The perianal and digital rectal examinations were normal. Non-bleeding external and internal hemorrhoids were found. Impression: - Non-bleeding external and internal hemorrhoids. - No specimens collected. Recommendation: - Repeat colonoscopy as per ACS guidelines for screening for colon cancer. - Follow up visit via telemedicine with Dang Canales PA-C to discuss results. Call to set this up, thank you - Continue present medications. Procedure Code(s): --- Professional --- 20313, Colonoscopy, flexible; diagnostic, including collection of specimen(s) by brushing or washing, when performed (separate procedure) Diagnosis Code(s): --- Professional --- K64.8, Other hemorrhoids K50.90, Crohn's disease, unspecified, without complications CPT copyright 2017 [employer]. All rights reserved. The codes documented in this report are preliminary and upon gunstock spray unit adjuster review may be revised to meet current compliance requirements. MD Lupe Naranjo MD 07/22/2020 9:51:36 AM This report has been signed electronically. Number of Addenda: 0 Note Initiated On: 07/22/2020 9:31 AM
== END 2020-07-22 10:34 ==
LOC: EN 08:11 → AC 08:13
PROVIDERS: Anesthesiology; PCP Family Medicine; Referring Provider Family Medicine; Visit Provider Surgery
PROC: 0DJD8ZZ Inspection of Lower Intestinal Tract, Via Natural or Artificial Opening Endoscopic (ICD-10-PCS; CPT 45378; principal; 2020-07-22 09:10)
DX: Z12.11 Encounter for screening for malignant neoplasm of colon (principal); K29.50 Unspecified chronic gastritis without bleeding; K44.9 Diaphragmatic hernia without obstruction or gangrene; K50.80 Crohn's disease of both small and large intestine without complications; K31.89 Other diseases of stomach and duodenum; K22.8 Other specified diseases of esophagus; K64.8 Other hemorrhoids; K64.4 Residual hemorrhoidal skin tags; Z20.822 Contact with and (suspected) exposure to COVID-19; E78.5 Hyperlipidemia, unspecified; E88.81 Metabolic syndrome and other insulin resistance; G47.33 Obstructive sleep apnea (adult) (pediatric); K21.9 Gastro-esophageal reflux disease without esophagitis
CPT/HCPCS: 43239; 45378; 81025; 87426; 88305; 88313; 88342; J7050; J7120; J2405

== ENCOUNTER → 2021-08-19 | Outpatient (CLI) | payer OTHER, SELFPAY ==
[2021-08-19 12:11] LABS: Absolute Lymphocyte Count 2.03 X10^3/uL (0.83-4.51); Absolute Neutrophil Count 5.8 X10^3/uL (2.0-7.7); Basophil# 0.06 X10^3/uL; Basophil% 0.7 % (0-1); Eosinophil# 0.29 X10^3/uL; Eosinophils% 3.3 % (0-5); Hematocrit 43.8 % (37-47); Hemoglobin 13.6 g/dL (12.0-15.0); Lymphocyte # 2.03 X10^3/ul (0.83-4.51); Lymphocyte % 23.1 % (19-41); Mean Corp Hgb Conc 31.1 g/dL (32-36); Mean Corpuscular Hgb 26.8 pg (27.0-32.0); Mean Corpuscular Volume 86.2 fL (81-99); Mean Platelet Vol. 8.2 fl (6.2-12.0); Monocyte# 0.54 X10^3/uL; Monocyte% 6.2 % (0-10); NRBC Flagged by Analyzer 0 % (0-5); Neutrophil # 5.83 X10^3/uL (2.7-7.7); Neutrophil % 66.4 % (47-70); Platelet Count 475 K/mm3 (150-450); RBC Distribution Width CV 12.7 % (11.6-14.6); RBC Distribution Width SD 39.8 fl (35.1-43.9); Red Blood Count 5.08 M/mm3 (4.2-5.4); White Blood Count 8.8 K/mm3 (4.4-11.0)
[2021-08-19 12:26] LABS: Vitamin D,25 Hydroxy 24.6 ng/mL
[2021-08-19 12:29] LABS: Hemoglobin A1c 7.1 % (3.8-5.6)
[2021-08-19 12:41] LABS: ALB/GLOB Ratio 0.8 RATIO (0.9-2.4); AST(SGOT) 12 U/L (15-37); Alanine Aminotransfer ALT/SGPT 26 U/L (13-56); Albumin, Serum 3.2 g/dL (3.2-5.0); Alkaline Phosphatase 91 U/L (45-117); Anion Gap 3 (5-15); BUN 10 mg/dL (7-18); BUN/Creat Ratio 13.2 RATIO (10-20); Chloride 103 mmol/L (98-107); Cholesterol 161 mg/dL (200); Creatinine, Serum 0.76 mg/dL (0.55-1.02); EST Glomerular Filtration Rate 86 mL/min (>60); Est Glom Filt Rate - Afr Amer 104 mL/min (>60); Free T3 2.6 pg/mL (2.18-3.98); Globulin 4.1 g/dL (2.2-4.2); Glucose 162 mg/dL (74-106); High Density Lipoprotein 59 mg/dL; Magnesium 1.9 mg/dL (1.6-2.6); Protein, Total 7.3 g/dL (6.4-8.2); Sodium Level 137 mmol/L (136-145); Thyroid Stim Hormone (TSH) 0.99 uIU/mL (0.358-3.74); Triglycerides 125 mg/dL; Very Low Density Lipoprotein 25 mg/dL (5-40)
== END | disposition home or self-care (01) ==
LOC: BIMLAB 10:17
PROVIDERS: PCP Internal Medicine; Referring Provider Internal Medicine; Visit Provider Internal Medicine
DX: E88.81 Metabolic syndrome and other insulin resistance (principal); K50.90 Crohn's disease, unspecified, without complications; E55.9 Vitamin D deficiency, unspecified; Z13.220 Encounter for screening for lipoid disorders; Z99.89 Dependence on other enabling machines and devices
CPT/HCPCS: 36415; 80053; 80061; 82306; 83036; 83735; 84439; 84443; 84481; 85025

== ENCOUNTER → 2022-06-16 | Outpatient (CLI) | payer OTHER, SELFPAY ==
--- NOTE | 2022-06-16 09:38 | US_ITS ---
STUDY: ABDOMINAL ULTRASOUND - RIGHT UPPER QUADRANT REASON FOR VISIT: Female, 51 years old Upper abdominal pain and bloating TECHNIQUE: Ultrasound evaluation of the right upper quadrant was performed with real-time and static santiago-scale imaging. TECHNICAL QUALITY: Adequate. COMPARISON: Abdomen and pelvis January 12, 2019 FINDINGS: Liver: The liver measures 15.2 cm. There is increased echogenicity consistent with fatty infiltration. The bile ducts are within normal limits. There is hepatic color flow. The direction of portal flow is hepatopetal. There is no demonstrated mass lesion. Gallbladder: Normal distended gallbladder. The gallbladder wall measures 1.4 mm. There is a negative sonographic Howard''s sign. There is no pericholecystic fluid. There are no gallstones. Common Bile Duct (C.B.D.): The common bile duct measures 3 mm. Pancreas: Incompletely visualized due to bowel gas. Right Kidney: Normal size of the right kidney. The right kidney measures 10.3 cm. Normal renal cortex. The right cortex measures 2.1 cm. There is no demonstrated renal mass or cyst. There is no right hydronephrosis. US/Gallbladder IMPRESSION: Hepatocellular disease most likely hepatic steatosis. Pancreas incompletely visualized. Electronically Signed: Armand Penny MD at 18:21 EDT ,
== END | disposition home or self-care (01) ==
LOC: US 09:37
PROVIDERS: PCP Internal Medicine; Visit Provider Internal Medicine
DX: R10.10 Upper abdominal pain, unspecified (principal)
CPT/HCPCS: 76705

== ENCOUNTER → 2022-06-29 | Outpatient (CLI) | payer OTHER, SELFPAY ==
--- NOTE | 2022-06-29 08:46 | NM_ITS ---
CLINICAL: 51-year-old female with history of abdominal pain and nausea. RADIONUCLIDE HEPATOBILIARY SCINTIGRAPHY COMPARISON: Gallbladder ultrasound report 06/16/2022 FINDINGS: Following the intravenous administration of 6.0 mCi of 99m Tc Mebrofenin, hepatobiliary images reveal: 1. Relatively prompt and homogeneous radiopharmaceutical concentration is noted by a normal sized liver. No parenchymal defects are identified. 2. Gallbladder activity is identified at 30 minutes post radiopharmaceutical administration. 3. Small intestinal tract is not visualized during 60 minutes of pre-CCK sequential image acquisition. Small bowel is visualized following cholecystokinin infusion. 4. Washout of the radiopharmaceutical by the hepatic parenchyma appears qualitatively normal. Cholecystokinin (0.02 ug/kg) was administered intravenously over a 30-minute period. The post CCK gallbladder ejection fraction calculated was noted to be < 5 % (normal greater than 35%). NM/Hepatobilliary Img w/Pharm Int IMPRESSION: 1. ABNORMAL 99m Tc Mebrofenin hepatobiliary imaging examination with Cholecystokinin. A. A gallbladder ejection fraction calculated to be less than 35% following the administration of Cholecystokinin is consistent with the presence of functional hepatobiliary disease (gallbladder and/or sphincter of Oddi dyskinesia) and/or organic hepatobiliary disease (chronic acalculous cholecystitis and/or cystic duct syndrome) in patients with intermediate to high pretest probabilities of hepatobiliary illness. (Avelino Merida et al, Journal of Nuclear Medicine 32:1695, 1991). Electronically Signed: Enrique Hudson, at 22:41 EDT ,
== END | disposition home or self-care (01) ==
LOC: NM 08:45
PROVIDERS: PCP Internal Medicine; Visit Provider Internal Medicine
DX: R10.10 Upper abdominal pain, unspecified (principal)
CPT/HCPCS: 78227; A9537; J2805

== ENCOUNTER 2022-07-19 08:54 | Day surgery (SDC) | payer OTHER, SELFPAY ==
--- NOTE | 2022-07-15 12:15 | EKG12_ITS ---
Test Reason : PRE OP Blood Pressure : / mmHG Vent. Rate : 092 BPM Atrial Rate : 092 BPM P-R Int : 120 ms QRS Dur : 112 ms QT Int : 398 ms P-R-T Axes : 003 -46 005 degrees QTc Int : 492 ms Normal sinus rhythm Left anterior fascicular block Prolonged QT Abnormal ECG Confirmed by ABIGAIL WALSH, AYDE ([id number]), market editor ISH KO ([id number]) on 07/18/2022 12:38:39 PM Referred By: Vamshi Shane Confirmed By:AYDE HAYES MD
[2022-07-15 13:39] LABS: Hematocrit 40.7 % (37-47); Hemoglobin 12.9 g/dL (12.0-15.0); Mean Corp Hgb Conc 31.7 g/dL (32-36); Mean Corpuscular Hgb 27.4 pg (27.0-32.0); Mean Corpuscular Volume 86.6 fL (81-99); Mean Platelet Vol. 8.2 fl (6.2-12.0); Platelet Count 458 K/mm3 (150-450); RBC Distribution Width CV 12.7 % (11.6-14.6); RBC Distribution Width SD 40.2 fl (35.1-43.9); White Blood Count 8.6 K/mm3 (4.4-11.0)
[2022-07-15 14:07] LABS: Anion Gap 1 (5-15); BUN 10 mg/dL (7-18); BUN/Creat Ratio 14.4 RATIO (10-20); Calcium,Total 9.2 mg/dL (8.5-10.1); Chloride 107 mmol/L (98-107); Creatinine, Serum 0.69 mg/dL (0.55-1.02); EST Glomerular Filtration Rate 95 mL/min (>60); Est Glom Filt Rate - Afr Amer 115 mL/min (>60); Glucose 140 mg/dL (74-106); Potassium 3.6 mmol/L (3.5-5.1); Sodium Level 138 mmol/L (136-145)
[2022-07-19] VITALS (16 sets, daily range): BP systolic 126–147; BP diastolic 75–92; PULSE 56–81; RESP 10–21; TEMP 36.6–37; O2SAT 74–98; BMI 37.0
[2022-07-19] MEDS: Lactated Ringers 1,000 ML 15 ML IV ×2 (09:33→13:00)
--- NOTE | 2022-07-19 10:00 | RAD_ITS ---
STUDY: INTRAOPERATIVE CHOLANGIOGRAM. REASON FOR EXAM: Female, 51 years old. Laparoscopic cholecystectomy. FLUOROSCOPY TIME (if supplied): ( 15 seconds ) minutes/seconds. 15.35 mGy TECHNIQUE: An intraoperative cholangiogram was performed by the surgeon. Imaging was provided. COMPARISON: None. FINDINGS: The intrahepatic biliary ducts are unremarkable. The common bile duct is unremarkable. No intraluminal filling defect is seen. There is free flow of contrast into the duodenum. RAD/Cholangiogram/ O R,Initial IMPRESSION: Unremarkable intraoperative cholangiogram. Electronically Signed: Rick Virgen MD at 12:26 EDT ,
--- NOTE | 2022-07-19 10:36 | PCM.HP.BLA ---
History and Physical Date of Admission: 07/19/22 Visit Reasons:?UPPER ABDOMINAL PAIN Chief Complaint: UPPER ABDOMINAL PAIN Allergies iodine Allergy (Verified 06/09/22 13:08) SwellingPenicillins [PCN] Allergy (Verified 06/09/22 13:08) SwellingSulfa (Sulfonamide Antibiotics) Allergy (Verified 06/09/22 13:08) Swelling PFSH Medical History Acid reflux Breast lump CPAP (continuous positive airway pressure) dependence Crohns disease Crohns disease History of kidney stones Hx of cardiovascular stress test Irregular heart beat Kidney stones Non-smoker Family History? Mother Arthritis Rheumatoid arthritisBrother CancerFather Cancer DiabetesGrandfather CancerGrandmother Diabetes Cancer ?? ? Breast Kidney disease CVA (cerebral vascular accident) Social History? Smoking Status:? Never smoker alcohol intake:? never substance use type:? does not use what type of physical activity do you participate in:? none and walking frequency:? daily HPI HPI HPI: 51-year-old female is being referred by Dr. Brittany Estrada for surgical consultation regarding upper abdominal pain.? A written copy of my surgical consult recommendations will return to him.? It is of note that July 22, 2020 Dr. Lupe Alfonso performed a combined upper and lower endoscopy.? Very small hiatal hernia was noted.? Some mild chronic gastritis identified.? GE junction biopsies showed gastric mucosa with mild chronic inflammation.? No evidence of Alfred's.? H. pylori was negative.? Her colonoscopy at that time suggested mild hemorrhoids but no acute findings.? On June 16, 2022 she had a gallbladder ultrasound.? I have personally reviewed these images.? Findings suggest hepatic steatosis.? The patient then on June 29, 2022 had a nuclear medicine hepatobiliary scan.? The ejection fraction was noted to be less than 5% abnormal. Is been having pressure sensation in the retrosternal area and epigastric area.? She claims that she carries a history of Crohn's disease.? She had been managed by [facility] gastroenterology for Crohn's disease.? She was long ago on Christine but because the pills came out mostly undigested she did stop that.? Her most recent intervention I believe in 2020 demonstrated active flatus at that time but there was some question now as to whether it was Crohn's. She denies any bright red blood per rectum or melena.? She has any surgery on her abdomen.? She does not use tobacco.? 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 She has not ever had COVID. She does not currently have active gastroenterology care. ROS General General: Yes weight change and fatigue; No appetite, colon cancer, breast cancer or weakness HEENT HEENT: No difficulty swallowing, eye injury, eye surgery, swollen glands or hoarseness Endo Endocrine: No thyroid disease, diabetes mellitus, thyroid cancer, Hair loss, heat intolerance or cold intolerance Skin Skin: No rash or changing moles Breast Breast: No left breast lump, right breast lump, nipple discharge, breast pain, abnormal mammogram, abnormal US or breast enlargement Musc Musculoskeletal: Yes back problems; No arthritis, rheumatoid arthritis, gout or joint pain Cardio Cardiovascular: No murmur, pacemaker, heart disease, atrial fibrillation, high blood pressure, heart attack, heart stent, palpitations, shortness of breat with exertion or chest pain Psych Psychiatric: No depression, anxiety or hearing voices Resp Respiratory: No shortness of breath, Yes sleep apnea, No cough, No COPD, No asthma, No emphysema and No wheezing Gastro Gastrointestinal: Yes abdominal pain, Yes nausea or vomiting, Yes diarrhea, No constipation, No blood in stool, Yes acid reflux, Yes hemorrhoids, No ulcers, Yes gallbladder problem and No black,tarry stools Major Hematologic: No blood thinners, No blood disorders, No bleeding, No anemia and No blood clots Neuro Neurologic: No system reviewed and no additional complaints, except as documented, No as per HPI, No abnormal gait, No abnormal hearing, No abnormal movements, No abnormal speech, No behavioral changes, No burning sensations, No confusion, No convulsions, No disequilibrium, No dizziness, No localized weakness, No frequent falls, No headache(s), No lack of coordination, No loss of vision, No memory loss, No numbness, No other visual disturbances, No radicular pain, No restless legs, No sensory deficit, No syncope, No tingling, No tremor(s), No weakness and No other Exam Const General: cooperative, comfortable and no acute distress [facility] Head: normal to inspection Eyes General: appearance normal, both eyes and all related structures Neck Neck: normal visual inspection Chest Chest palpation & inspection: normal inspection of the chest Resp Effort & Inspection: normal respiratory effort Auscultation: clear to auscultation bilaterally Cardio Rate: regular rate Rhythm: regular rhythm GI Palpation: soft and no hepatosplenomegaly Other: Nontender, normal bowel sounds Musc Cervical Spine: normal cervical lordosis Skin General: no rashes or lesions noted Neuro General: patient alert, patient awake and patient oriented x3 Extrem General: no calf tenderness Psych Appearance: grossly normal Assessment and Plan Assessment and Plan (1) Abnormal biliary HIDA scan: ?Status:?Acute (2) Upper abdominal pain: ?Status:?Acute ?Plan: Copy: Dr. Brittany Shane M.D., F.A.C.S. (3) Biliary dyskinesia: ?Status:?Acute Plan My current diagnosis is biliary dyskinesia.? I have discussed with the patient laparoscopic cholecystectomy with selective cholangiography and we discussed the technique, benefit, risk and alternatives.? I believe that her abdominal concerns are multifocal functional.? I believe that she does have biliary dyskinesia and pain associated with this but I also believe that she has Crohn's disease or other form of colitis. 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 I suggested to her that we make a referral with local cardiology Dr. Ponce Friend especially as the patient now has [place] [facility] and Dr. Brittany Estrada.? She does express some interest in that. She has had an opportunity to ask and have questions answered.? She is aware of the technique, benefit, risk, alternatives.? We will schedule procedure at her discretion.? I appreciate the opportunity of assisting with her surgical care. Copy: Dr. Brittany Shane M.D., F.A.C.S I have examined the patient and the H&P has been reviewed. There are no clinical changes since date of exam. Vamshi Shane M.D., F.A.C.S.
--- NOTE | 2022-07-19 10:54 | DCINST_ITS ---
Discharge Instructions Procedure General Surgery Diet Discharge Diet: Light diet - advance as tolerated (if you have questions about your diet instructions, please talk to you doctor.) Activity Discharge Activity: May Not Drive (for 3-5 days or while taking narcotic pain medicine.) May shower in (days): 1 Lifting Restrictions: 10 pounds Dressing / Incision Call your doctor if your incision/area has: Continuous Slow Oozing, Sudden Increased Bleeding, Increased Pain/ Swelling, Increased Redness and Foul Smelling Discharge Call your doctor if you observe: Fever of 101 or Higher Suture Line Care: Avoid Pulling/Pushing and Avoid Pinching/Bending Additional Dressing/Incision Instructions:: Change or remove dressing in 4 days. Leave steri-strips in place for 1 week. Follow Up Care Please Follow Up With: Vamshi Shane MD When: Call [phone] to make an appointment to be seen in about 10 days. Test Results: Test results from this visit will be discussed in further detail at your follow- up appointment, if applicable. Discharge Plan Admission Attending Provider: Vamshi Shane Primary Care Provider: Brittany Estrada Consulting Providers: Alejandro Stone Discharge Orders/Prescriptions Prescriptions: No Action multivitamin Tablet 1 tab PO DAILY Referrals / Follow Up: Brittany Estrada MD [Primary Care Provider] - Disposition Disposition (needs filled in before D/C Order can be placed): Home, Self Care
--- NOTE | 2022-07-19 11:00 | GALL_PTH ---
PATIENT: SEFERINO HOLLINGSWORTH [place] [facility] [place][id number] AGE/SX: 51/F ROOM: RE07/19/[address]: Dr. Vamshi Shane MD : 1970 BED: DIS: 07/19/2022 SPEC #: [id number] RECD: 07/19/22 15:15 STATUS: GEOFF AUGUSTINE #: [id number] CHRISTIAN: 07/19/22 11:[address]: Vamshi Shane DEPT: SURGICAL PATHOLOGY RECD BY: Bobo Mckinney ENTERED: 07/20/22 07:56 SP TYPE: MITCHEL ESTRELLA DR: MD Dr. Brittany Rogers MD Tissues: Gallbladder, NOS Procedures: Surgery Specimen Level III HEADER OPERATION: Laparoscopic cholecystectomy with IOC PRE-OP DIAGNOSIS: Biliary dyskinesia TISSUE SUBMITTED: Gallbladder MICROSCOPIC DIAGNOSIS Gallbladder, cholecystectomy: Chronic cholecystitis and cholelithiasis. AM:sadie 07/21/2022 MICROSCOPIC DESCRIPTION Slides are reviewed. GROSS DESCRIPTION Received is one container labeled with the patient's name and designated gallbladder. The specimen consists of a gallbladder measuring 6.0 x 3.5 x 2.5 cm. The external surface is smooth and glistening. Focally, it is granular, hemorrhagic and contains cautery artifact. The lumen of the gallbladder contains yellow-green mucoid bile and no calculi. The mucosa is bile-stained and without any mass lesions. The gallbladder wall averages 0.2 cm in thickness and is free of mass lesions. Shoder Filler sections of the gallbladder and the cystic duct at margin of resection are submitted in one cassette. / AM:sadie 07/20/2022 TC:3 CPT: 28878
[2022-07-19] MEDS: Bupivacaine 0.25% 30 ML Vial (11:07)
--- NOTE | 2022-07-19 12:06 | OP.PCM_ITS ---
Report of Operation Date of Procedure: 07/19/22 Pre-Operative Diagnosis: Biliary dyskinesia Post-Operative Diagnosis: Same Surgery/Procedure Performed:: Laparoscopic cholecystectomy with cholangiograms Description of Surgical Findings:: Timeout informed consent was obtained. 51-year-old female was taken to the operating placed upon the table underwent general endotracheal intubation esthesia. Clindamycin 900 mg were given intravenously. The patient received her normal antiemetic and Decadron plus IV Benadryl because of her iodine contrast allergy. 0.5% Marcaine was used as a local anesthetic. Throughout the procedure a total of 30 cc was used. Skin sites were Milly size. A vertical infraumbilical incision was created holding sutures of 0 Vicryl placed varies needle inserted saline drop test performed the abdomen was insufflated to CO2 to a pressure of 12 mmHg pressure. 12 mm trocar inserted. 10 mm laparoscope inserted. There was no evidence of any trocar injuries. The patient was raised in reverse Trendelenburg position with the right side up. Under direct visitation 5 mm ports were placed in the epigastric mid abdomen right upper quadrant. The gallbladder was distracted blunt dissection was instituted at the infundibulum the cystic duct identified cystic artery identified and then a very large right hepatic that went right underneath the gallbladder area. I dissected further on the gallbladder infundibular area to assure clearance. Placed a Hem-o-keith clip on the cystic duct stump and incision placed a cholangiogram catheter through the cholangiocatheter and got fluoroscopically controlled cholangiograms demonstrating normal flow into the small bowel with normal ductal anatomy. Angiogram catheter was removed 2 Hem-o-keith clips were placed on the cystic duct stump prior to transecting it the gallbladder was dissected free from the liver bed it is of note that there was a impression into the liver bed causing a hollowed out area that the gallbladder followed. Made an opening in the gallbladder at that point then had to carefully grabbed the lining of the gallbladder and carefully dissected free from that area of depression. Was able then to complete the electrocautery dissection with an e ventual complete removal of the gallbladder. The right upper quadrant was irrigated and aspirated free fluid. The Hem-o-keith clips areas were inspected all were intact. Piece of fibrillar was placed in the liver bed. The gallbladder was placed in the retrieval bag and exited at the umbilicus. No fascial enlargement was required. Trocars were removed the abdomen was deflated of the CO2 through an antiviral valve. The fascia at the umbilicus approximated up to 0 Vicryl [id number]-ir-udguk suture. Skin edges approximated with interrupted 4 Monocryl subdermal stitches. Steri-Strips Telfa OpSite dressings applied. Sponge and instrument and needle counts were reported to the surgeon to be correct. Specimen gallbladder. Drains none. Blood loss minimal. The patient was taken to the recovery room in satisfied condition without apparent complication Vamshi Shane M.D., F.A.C.S. Surgeon: Vamshi Shane Type of Anesthesia: General and Local Anesthesiologist: Holly Chavez
[2022-07-19] MEDS: Ipratropium/Albuterol Sulfate 3 ML AMPUL.NEB INHALATION (14:05)
[2022-07-19] MEDS: HYDROcodone Bitartrate/Apap 5/325 Tablet PO (15:42)
== END 2022-07-19 16:25 | disposition home or self-care (01) ==
LOC: SDC 08:55 → AC 08:55
PROVIDERS: PCP Internal Medicine; Referring Provider Surgery; Visit Provider Surgery
PROC: (CPT 47610; principal; 2022-07-19 10:40)
DX: K80.10 Calculus of gallbladder with chronic cholecystitis without obstruction (principal); K50.90 Crohn's disease, unspecified, without complications; E66.9 Obesity, unspecified; Z68.37 Body mass index [BMI] 37.0-37.9, adult
CPT/HCPCS: 47563; 36415; 74300; 76000; 80048; 85027; 88304; 93005; 94640; J7120; J2405

== ENCOUNTER → 2022-10-04 | Outpatient (CLI) | payer OTHER, SELFPAY ==
[2022-10-04 13:30] LABS: Absolute Lymphocyte Count 2.44 X10^3/uL (0.83-4.51); Absolute Neutrophil Count 6.3 X10^3/uL (2.0-7.7); Basophil# 0.08 X10^3/uL; Basophil% 0.8 % (0-1); Eosinophil# 0.21 X10^3/uL; Eosinophils% 2.2 % (0-5); Hemoglobin 13.5 g/dL (12.0-15.0); Lymphocyte # 2.44 X10^3/ul (0.83-4.51); Lymphocyte % 25.3 % (19-41); Mean Corp Hgb Conc 32.9 g/dL (32-36); Mean Corpuscular Hgb 27.6 pg (27.0-32.0); Mean Corpuscular Volume 83.7 fL (81-99); Monocyte# 0.56 X10^3/uL; Monocyte% 5.8 % (0-10); NRBC Flagged by Analyzer 0 % (0-5); Neutrophil # 6.31 X10^3/uL (2.7-7.7); Neutrophil % 65.6 % (47-70); Platelet Count 476 K/mm3 (150-450); RBC Distribution Width CV 12.7 % (11.6-14.6); RBC Distribution Width SD 38.6 fl (35.1-43.9); White Blood Count 9.6 K/mm3 (4.4-11.0)
[2022-10-04 13:52] LABS: ALB/GLOB Ratio 0.8 RATIO (0.9-2.4); AST(SGOT) 13 U/L (15-37); Alanine Aminotransfer ALT/SGPT 22 U/L (13-56); Albumin, Serum 3.2 g/dL (3.2-5.0); Alkaline Phosphatase 96 U/L (45-117); Anion Gap 5 (5-15); BUN 8 mg/dL (7-18); BUN/Creat Ratio 9.9 RATIO (10-20); Calcium,Total 8.9 mg/dL (8.5-10.1); Chloride 105 mmol/L (98-107); Creatinine, Serum 0.81 mg/dL (0.55-1.02); EST Glomerular Filtration Rate 80 mL/min (>60); Est Glom Filt Rate - Afr Amer 96 mL/min (>60); Globulin 3.9 g/dL (2.2-4.2); Glucose 176 mg/dL (74-106); Potassium 3.4 mmol/L (3.5-5.1); Protein, Total 7.1 g/dL (6.4-8.2); Sodium Level 137 mmol/L (136-145)
== END | disposition home or self-care (01) ==
LOC: PAVLAB 13:06
PROVIDERS: PCP Internal Medicine; Referring Provider Physician Assistant; Visit Provider Physician Assistant
DX: R10.11 Right upper quadrant pain (principal)
CPT/HCPCS: 36415; 80053; 85025

== ENCOUNTER → 2022-10-07 | Outpatient (CLI) | payer OTHER, SELFPAY ==
[2022-10-07 13:46] LABS: Erythrocyte Sedimentation Rate 20 mm/hr (0-30)
[2022-10-07 13:56] LABS: Absolute Lymphocyte Count 2.56 X10^3/uL (0.83-4.51); Absolute Neutrophil Count 6.5 X10^3/uL (2.0-7.7); Basophil# 0.09 X10^3/uL; Basophil% 0.9 % (0-1); Eosinophil# 0.18 X10^3/uL; Eosinophils% 1.8 % (0-5); Hematocrit 42.7 % (37-47); Hemoglobin 13.9 g/dL (12.0-15.0); Lymphocyte # 2.56 X10^3/ul (0.83-4.51); Lymphocyte % 25.9 % (19-41); Mean Corp Hgb Conc 32.6 g/dL (32-36); Mean Corpuscular Hgb 27.7 pg (27.0-32.0); Mean Corpuscular Volume 85.2 fL (81-99); Mean Platelet Vol. 8.2 fl (6.2-12.0); Monocyte# 0.54 X10^3/uL; Monocyte% 5.5 % (0-10); NRBC Flagged by Analyzer 0 % (0-5); Neutrophil # 6.48 X10^3/uL (2.7-7.7); Neutrophil % 65.5 % (47-70); Platelet Count 511 K/mm3 (150-450); RBC Distribution Width CV 12.8 % (11.6-14.6); RBC Distribution Width SD 39.4 fl (35.1-43.9); Red Blood Count 5.01 M/mm3 (4.2-5.4); White Blood Count 9.9 K/mm3 (4.4-11.0)
[2022-10-07 14:34] LABS: ALB/GLOB Ratio 0.8 RATIO (0.9-2.4); AST(SGOT) 16 U/L (15-37); Alanine Aminotransfer ALT/SGPT 22 U/L (13-56); Albumin, Serum 3.3 g/dL (3.2-5.0); Alkaline Phosphatase 97 U/L (45-117); Amylase 32 U/L (25-115); Anion Gap 5 (5-15); BUN 8 mg/dL (7-18); BUN/Creat Ratio 10.5 RATIO (10-20); Calcium,Total 9.1 mg/dL (8.5-10.1); Chloride 107 mmol/L (98-107); Creatinine, Serum 0.76 mg/dL (0.55-1.02); EST Glomerular Filtration Rate 85 mL/min (>60); Est Glom Filt Rate - Afr Amer 103 mL/min (>60); Glucose 130 mg/dL (74-106); LDH 187 U/L (84-246); Lipase 25 U/L (13-75); Potassium 3.6 mmol/L (3.5-5.1); Protein, Total 7.3 g/dL (6.4-8.2); Sodium Level 139 mmol/L (136-145)
[2022-10-12 21:07] LABS: Albumin 3.5 g/dL (2.9-4.4); Alpha-1-Globulins 0.3 g/dL (0.0-0.4); Cytoplasmic Ab (C-ANCA) <1:20 titer (Neg:<1:20); Endomysial Antibody IgA Negative (Negative); Gamma Globulin 0.7 g/dL (0.4-1.8); Immunoglobulin A 271 mg/dL (87-352); Immunoglobulin E 272 IU/mL (6-495); Immunoglobulin G 827 mg/dL (586-1602); Immunoglobulin M 53 mg/dL (26-217); PROEL- TOTAL PROTEIN 6.5 g/dL (6.0-8.5); Perinuclear Ab (P-ANCA) <1:20 titer (Neg:<1:20); t-Transglutaminase IgA <2 U/mL (0-3)
[2022-10-13 00:07] LABS: Anti-Centromere B Ab <0.2 AI (0.0-0.9); Anti-Chromatin <0.2 AI (0.0-0.9); Anti-Jo <0.2 AI (0.0-0.9); Anti-Scleroderma-70 AB <0.2 AI (0.0-0.9); Anti-dsDNA Ab <1 IU/mL (0-9); Beef <0.10 kU/L (Class 0); Chocolate <0.10 kU/L (Class 0); Clam <0.10 kU/L (Class 0); Codfish <0.10 kU/L (Class 0); Corn <0.10 kU/L (Class 0); Egg, White 0.29 kU/L (Class 0/I); Egg, Whole 0.19 kU/L (Class 0/I); Milk (Cow) <0.10 kU/L (Class 0); Peanut 0.25 kU/L (Class 0/I); Pork <0.10 kU/L (Class 0); RNP Ab 0.2 AI (0.0-0.9); SCALLOP <0.10 kU/L (Class 0); SESAME SEED 0.13 kU/L (Class 0/I); SJOGREN'S Anti-SS-A test < 0.2 AI (0.0-0.9); SJOGREN'S Anti-SS-B test < 0.2 AI (0.0-0.9); Shrimp <0.10 kU/L (Class 0); Smith Ab <0.2 AI (0.0-0.9); Soybean <0.10 kU/L (Class 0); Walnut, (Food) <0.10 kU/L (Class 0); Wheat <0.10 kU/L (Class 0)
== END | disposition home or self-care (01) ==
PROVIDERS: PCP Internal Medicine; Referring Provider Internal Medicine Gastroenterology; Visit Provider Internal Medicine Gastroenterology
DX: K58.9 Irritable bowel syndrome, unspecified (principal)
CPT/HCPCS: 36415; 80053; 82150; 82533; 82784; 82785; 83516; 83615; 83690; 84165; 85025; 85652; 86003; 86005; 86140; 86225; 86235; 86255; 86256; 86334

== ENCOUNTER → 2022-10-14 | Outpatient (CLI) | payer OTHER, SELFPAY ==
[2022-10-18 20:17] LABS: Pancreatic Elastase, Fecal 400 (>200)
[2022-10-19 18:12] LABS: Calprotectin, Stool 239 ug/g (0-120); Fats, Neutral Normal (.); Fats, Total Normal (.)
== END | disposition home or self-care (01) ==
PROVIDERS: PCP Internal Medicine; Referring Provider Internal Medicine Gastroenterology; Visit Provider Internal Medicine Gastroenterology
DX: K58.9 Irritable bowel syndrome, unspecified (principal)
CPT/HCPCS: 82274; 82653; 82705; 83630; 83993; 87177; 87209; 87329; 87493; 87506

== ENCOUNTER → 2022-10-18 | Outpatient (CLI) | payer OTHER, SELFPAY ==
--- NOTE | 2022-10-18 12:14 | NM_ITS ---
CLINICAL: 52-year-old female with history of abdominal bloating and early satiety. SEMI-SOLID PHASE 99m Tc SULFUR COLLOID GASTRIC EMPTYING STUDY COMPARISON: None available FINDINGS: The patient was administered 1.1 mCi of 99m Tc sulfur colloid mixed with oatmeal and consumed per os. Image acquisitions in the anterior-posterior projections were obtained for 60 minutes. There is prompt visualization of the stomach. There is no gastroesophageal reflux identified. First order kinetics are maintained throughout the duration of the acquisitions. The T ? linear fit was extrapolated to be 58.59 minutes, (Normal: 12-56 minutes). NM/Gastric Emptying Study IMPRESSION: 1. ABNORMAL 99m Tc sulfur colloid semi-solid phase (oatmeal) gastric emptying imaging examination. A. There is delayed semi-solid phase gastric emptying compared to normal controls with maintained first order kinetics throughout all components of the examination. (Rosalie et al, J Nucl Med Tech 38: 186, 2010). Electronically Signed: Enrique Hudson, at 9:36 EDT ,
== END | disposition home or self-care (01) ==
LOC: NM 12:14
PROVIDERS: PCP Internal Medicine; Referring Provider Internal Medicine Gastroenterology; Visit Provider Internal Medicine Gastroenterology
DX: K58.9 Irritable bowel syndrome, unspecified (principal)
CPT/HCPCS: 78264; A9541

== ENCOUNTER → 2022-10-21 | Outpatient (CLI) | payer OTHER, SELFPAY | END | disposition home or self-care (01) | LOC: LAB 11:32 | PROVIDERS: PCP Internal Medicine; Referring Provider Internal Medicine Gastroenterology; Visit Provider Internal Medicine Gastroenterology | DX: R10.11 Right upper quadrant pain (principal); K58.9 Irritable bowel syndrome, unspecified | CPT/HCPCS: 87177; 87209; 87329 ==

== ENCOUNTER → 2022-11-11 | Outpatient (CLI) | payer OTHER, SELFPAY ==
--- NOTE | 2022-11-11 10:09 | MRI_ITS ---
MR Enterography Abdomen/Pelvis WO/W Contrast 11/11/2022 11:26 AM COMPARISON: None available. CLINICAL HISTORY: K50.90 - Crohn''s disease, unspecified, without complications -- ?crohns staging TECHNIQUE: Following oral administration of enteric contrast and administration of glucagon, multiplanar T1 and T2 weighted images along with dynamic post-gadolinium images were obtained through the abdomen and pelvis. FINDINGS: GI Tract: Several loops of small bowel demonstrates short segment areas of wall thickening and mucosal hyperenhancement including the terminal ileum. There is a short segment stricture of the distal ileum just proximal to the terminal ileum. No fistula or obstruction. No drainable fluid collections. Liver: Unremarkable Gallbladder: Unremarkable Spleen: Unremarkable Pancreas: Unremarkable Adrenal Glands: Unremarkable Kidneys: Unremarkable Bladder: Unremarkable. Reproductive: Unremarkable Lymphadenopathy: Mesenteric lymphadenopathy. Ascites: Absent Bones: No suspicious lesions MRI/Enterography Abd/Pel IMPRESSION: Findings consistent with an acute flare of inflammatory bowel disease such as Crohn''s disease. Short segment stricture of the distal ileum. No obstruction, fistula or abscess. Electronically Signed: Chapito Harman MD at 21:20 EDT ,
[2022-11-11] MEDS: 0.9% Saline Lock 10 ML Syringe IV ×2 (10:30→11:49)
[2022-11-11 10:32] VITALS: BP 168/87; PULSE 91; RESP 18; O2SAT 98; BMI 35.4
[2022-11-11] MEDS: Glucagon 1 MG/ML Syringe IV (11:49)
[2022-11-11 12:05] VITALS: BP 160/90; PULSE 91; RESP 18; O2SAT 99
== END | disposition home or self-care (01) ==
LOC: MRI 09:59
PROVIDERS: PCP Internal Medicine; Referring Provider Internal Medicine Gastroenterology; Visit Provider Internal Medicine Gastroenterology
DX: K50.90 Crohn's disease, unspecified, without complications (principal)
CPT/HCPCS: 74183; 96374; A9575; J1610

== ENCOUNTER 2022-12-01 05:30 | Day surgery (SDC) | payer OTHER, SELFPAY ==
[2022-12-01] MEDS: Lactated Ringers 1,000 ML 15 ML IV (05:45)
[2022-12-01 05:52] VITALS: BP 117/82; PULSE 85; RESP 16; TEMP 36.5; O2SAT 99; BMI 34.2
--- NOTE | 2022-12-01 06:30 | IMM_PTH ---
PATIENT: SEFERINO HOLLINGSWORTH LOC: [place] U#:[id number] AGE/SX: 52/F ROOM: RE12/01/[address]: Dr. Kris Lam DO : 1970 BED: DIS: 12/01/2022 SPEC #: [id number] RECD: 12/01/22 14:33 STATUS: GEOFF RESuzanne #: [id number] CHRISTIAN: 12/01/22 06:[address]: Kris Lam DEPT: IMMUNOHISTOCHEMISTRY RECD BY: Alicia Catalan ENTERED: 12/01/22 14:33 SP TYPE: IMMUNO OT DR: Dr. Brittany Estrada MD Tissues: B - Stomach, NOS Procedures: H Pylori (initial) PHYSICIAN & [place] [id number] SPECIMEN INFORMATION: Tissue Source: C - Gastric antrum Clinical Info: Irritable bowel syndrome Specimen Number: [id number] CPT code: 21136 METHODOLOGY: Deparaffinized sections of prefer/formalin-fixed tissue or PAP/DQ stained slides are incubated with monoclonal/polyclonal antibodies/oligonucleotide probes. Localization is made via biotin free immunoperoxidase method. Appropriate controls are performed and reacted as expected. Results on target cell population are indicated in the following table: RESULTS: ANTIBODY / CLONE RESULT Block C H Pylori (polyclonal) negative These tests were developed and their performance characteristics determined by [facility]. They may not have been cleared or approved by the U.S. Food and Drug Administration. The FDA has determined that such clearance or approval is not necessary. The above immunohistochemical/dualISH markers are ordered and reviewed by the Pathologist. INTERPRETATION: C. Gastric antrum, biopsy: Negative for Helicobacter pylori organisms. AM:sadie 12/02/2022
--- NOTE | 2022-12-01 06:30 | EGD_PTH ---
PATIENT: SEFERINO HOLLINGSWORTH LOC: [place] U#:[id number] AGE/SX: 52/F ROOM: RE12/01/[address]: Dr. Kris Lam DO : 1970 BED: DIS: 12/01/2022 SPEC #: [id number] RECD: 12/01/22 10:39 STATUS: GEOFF FAWN #: [id number] CHRISTIAN: 12/01/22 06:[address]: Kris Lam DEPT: SURGICAL PATHOLOGY RECD BY: Zulay Freed ENTERED: 12/01/22 11:51 SP TYPE: EGD BIOPSY OT DR: Dr. Brittany Estrada MD Tissues: A - Duodenum, NOS B - Duodenum, NOS C - Gastric mucous membrane D - Esophagus, NOS E - Cecum, NOS Procedures: Special Stain Group II Surgery Specimen Level IV Alcian Blue/PAS (control) HEADER OPERATION: Colonoscopy, EGD, biopsy PRE-OP DIAGNOSIS: Irritable bowel syndrome TISSUE SUBMITTED: A - Duodenum biopsy, B - Duodenal submucosal lesion biopsy, C - Gastric antrum biopsy for histo and H. pylori, D - Distal esophagus biopsy, E - Ileocecal valve biopsy MICROSCOPIC DIAGNOSIS A. Duodenum, biopsy: Focal acute inflammation. B. Duodenal submucosal lesion, biopsy: Focal minimal acute inflammation. C. Gastric antrum, biopsy: Mild chronic inflammation. See comment. D. Distal esophagus, biopsy: Gastroesophageal junctional mucosa with mild chronic inflammation. Focal changes of reflux. No evidence of goblet cell metaplasia. See comment. E. Ileocecal valve, biopsy: Ulceration with associated acute and chronic inflammation and granulation. Fibrinopurulent material. AM:sadie 12/02/2022 COMMENT C. The results of immunohistochemistry for Helicobacter pylori will be reported separately ([id number]). D. Alcian blue/PAS stain with matched control supports the above diagnosis. MICROSCOPIC DESCRIPTION Slides are reviewed. GROSS DESCRIPTION A - Received in fixative is one container labeled with the patient's name and designated duodenum biopsy. The specimen consists of multiple irregular fragments of light rankin soft tissue that in aggregate measure 1.0 x 0.3 x 0.1 cm. The specimen is totally submitted in one cassette. B - Received in fixative is one container labeled with the patient's name and designated duodenal submucosal lesion biopsy. The specimen consists of multiple irregular fragments of light rankin soft tissue that in aggregate measure 1.0 x 0.3 x 0.1 cm. The specimen is totally submitted in one cassette. C - Received in fixative is one container labeled with the patient's name and designated gastric antrum biopsy. The specimen consists of two irregular fragments of light rankin soft tissue that in aggregate measure 0.6 x 0.3 x 0.1 cm. The specimen is totally submitted in one cassette. D - Received in fixative is one container labeled with the patient's name and designated distal esophagus biopsy. The specimen consists of two irregular fragments of light rankin soft tissue that in aggregate measure 0.6 x 0.3 x 0.1 cm. The specimen is totally submitted in one cassette. E - Received in fixative is one container labeled with the patient's name and designated ileocecal valve biopsy. The specimen consists of multiple irregular fragments of light rankin soft tissue that in aggregate measure 1.2 x 0.3 x 0.1 cm. The specimen is totally submitted in one cassette. / SJ:rg 12/01/2022 TC:2 CPT: 99350 x5
--- NOTE | 2022-12-01 06:35 | HP.PCM_ITS ---
History and Physical Date of Admission: 12/01/22 52 F who presents to the office today for a consult. Prior workup:?EGD and colonoscopy [facility] 07.22.20?EGD irregular Zline; gastritis; small hiatal hernia. HPylori negative.?Colonoscopy internal/external hemorrhoids. No specimens collec celina.?US RUQ 06.16.22?hepatic measurement 15.2 with fatty infiltration.?HIDA ..?EF <5%? WSA OV 07.12.22 to address upper abdominal pain. Reports history of Crohn?s disease with establishment at [facility] GI for management but is not current. Laverne diagnosis truly biliary dyskinesia and recommended cholecystectomy. Referred to GI.?Laparoscopic cholecystectomy 07.20.22?following which her oxygen dropped to 74%; reports history of sleep apnea which she does not use her CPAP. ? WSA .07.17 RUQ pain has resolved and appetite has returned to normal.? PCP OV 5.07.17 noting loose BM with possibility of starting cholestyramine if dietary changes are ineffective.?Biochemical 08.19.21?CBC, CMP, LFT, triglycerides, lipids, Vit D25, TSH, T3, T4 without pertinent abnormality.?A1c H7.1? Today patient reports that she has liquid stools about 6 times a day, abdominal pain, nausea since 2009. States that she was previously on Pentasa for Crohn's but this was not helpful and the whole capsule would come out in her stool. States that cholestyramine was discussed for her loose BM but she was never started on it. Denies any blood in stool. ROS Const Constitutional: Positive for fatigue and weight change; No fever(s), frequent falls or headache(s) ENT ENT: No headache(s) or difficulty swallowing Cardio Cardiology: No leg pain with exertion Gastro GI: Positive for abdominal pain, diarrhea and nausea/dyspepsia; No bloating, change in bowel habits, constipation, heartburn, difficulty swallowing, Vomiting blood/hematemesis, Blood in stool or vomiting Musc Musculoskeletal: Positive for joint pain, back pain and restless legs; No abnormal gait, joint swelling, muscle cramps, muscle weakness, numbness, stiffness, tingling, Arthritis, sciatica, leg pain at night or leg pain with exertion Skin Skin: No dry skin, lesions, itchy eyes or rash Neuro Neurology: Positive for restless legs; No abnormal gait, dizziness, frequent falls, headache(s), numbness, tingling, tremor(s), Increased tone in limbs, paralysis or seizures Psych Psychiatric: Positive for anxiety, No depression, No paranoia, No Behavioral Problems, No Compulsive Behavior, No hyperactivity, No inattentiveness, No obsessions/compulsions, No Temper Tantrums and No suicidal ideation Endo Endocrine: Positive for fatigue and weight change Aller/Imm Allergy/Immunologic: No itchy eyes Major/Lymp Hematologic/Lymphatic: No easy bleeding or easy bruising Exam Const General: cooperative and comfortable Nutritional Appearance: average body habitus and well nourished [facility] Head: normal to inspection Ears: hearing grossly normal bilaterally Nose: external nose normal Face and sinus: normal facial exam Mouth: oral mucosae normal Throat: posterior oropharynx normal Eyes General: appearance normal, both eyes and all related structures Neck Neck: normal visual inspection Chest Chest palpation & inspection: normal inspection of the chest and normal palpation of entire chest wall Resp Effort & Inspection: normal respiratory effort Auscultation: Bilateral: Clear to Auscultation Cardio Palpation: normal PMI Rate: regular rate Rhythm: regular rhythm GI Inspection: normal to inspection Auscultation: normal bowel sounds Percussion: normal to percussion Palpation: no hepatosplenomegaly Skin General: no rashes or lesions noted Neuro General: patient alert Extrem General: normal to inspection Psych Affect: normal affect Quality Reporting Tobacco Screening ([facility] 138) Smoking Status: Never smoker Assessment and Plan Assessment and Plan (1) IBS (irritable bowel syndrome): Status: Acute Plan: She has a past medical history of IBS with diarrhea versus Crohn's disease affecting the small bowel. Her last upper and lower endoscopy did not show any signs of inflammatory bowel disease. No biopsies were taken for eosinophilic disease or microscopic disease. She is complaining 5-6 watery bowel movements a day. This is worse after undergoing cholecystectomy. She said she had stool testing a long time ago but cannot remember what they tested. She is not undergone any genetic testing for inflammatory bowel disease, vasculitis or any other autoimmune disease that may be contributing to her symptoms. She has not had any functional testing such as gastric emptying, test for small bacterial overgrowth or stool testing for exocrine pancreatic insufficiency. We will perform biochemical work-up and stool studies. In the meantime I will give her dicyclomine 20 mg p.o. 3 times daily and colestipol 1 g p.o. twice daily. Orders: Orders Stool Lactoferrin/WBC Today K58.9 - Irritable bowel syndrome without diarrhea Erythrocyte Sed Rate Today K58.9 - Irritable bowel syndrome without diarrhea ANCA Today K58.9 - Irritable bowel syndrome without diarrhea LDH Today K58.9 - Irritable bowel syndrome without diarrhea CRP Today K58.9 - Irritable bowel syndrome without diarrhea MYKEL Comprehensive Panel Today K58.9 - Irritable bowel syndrome without diarrhea Immunoglobulins G/A/M/E Today K58.9 - Irritable bowel syndrome without diarrhea Celiac Disease Profile Today K58.9 - Irritable bowel syndrome without diarrhea CBC W/Diff, Automated Today K58.9 - Irritable bowel syndrome without diarrhea BRITNEY + Protein Elect, Serum Today K58.9 - Irritable bowel syndrome without diarrhea Calprotectin, Stool Today K58.9 - Irritable bowel syndrome without diarrhea Comprehensive Metabolic Profil Today K58.9 - Irritable bowel syndrome without diarrhea Miscellaneous Lab Procedure Today K58.9 - Irritable bowel syndrome without diarrhea ENTERIC PATHOGEN PANEL STOOL Today K58.9 - Irritable bowel syndrome without diarrhea CDIFF (PCR) Today K58.9 - Irritable bowel syndrome without diarrhea Pancreatic Elastase, Fecal Today K58.9 - Irritable bowel syndrome without diarrhea OVA+PARA w/Giardia EIA [id number] Today K58.9 - Irritable bowel syndrome without latia rrhea Allergen, Food Profile Today K58.9 - Irritable bowel syndrome without diarrhea Allergen, Rast Food Profile Today K58.9 - Irritable bowel syndrome without diarrhea Stool Occult Blood iFOB Today K58.9 - Irritable bowel syndrome without diarrhea Fecal Fat, Qualitative Today K58.9 - Irritable bowel syndrome without diarrhea Gastric Emptying Study Today K58.9 - Irritable bowel syndrome without diarrhea Amylase Today K58.9 - Irritable bowel syndrome without diarrhea Lipase Today K58.9 - Irritable bowel syndrome without diarrhea CORTISOL SERUM Today K58.9 - Irritable bowel syndrome without diarrhea Medications: New dicyclomine 20 mg PO TID 90 tabs 2RF colestipol 1 g PO BID 60 tabs 2RF I have examined the patient and the H&P has been reviewed. There are no clinical changes since date of exam.
[2022-12-01 07:15] VITALS: BP 105/61; BP 117/82; PULSE 73; RESP 16; TEMP 36.4; O2SAT 100
--- NOTE | 2022-12-01 07:18 | OP.EGD_ITS ---
Patient Name: Mariangel Santana Procedure Date: 12/01/2022 6:34 AM Date of : 1970 Age: 52 Procedure: Upper GI endoscopy Indications: Epigastric abdominal pain Providers: Kris Lam DO Referring MD: Kris Lam DO Medicines: Monitored Anesthesia Care Patient Profile: This is a 52 year old female. Refer to note in patient chart for documentation of history and physical. Patient has symptoms of chronic abdominal cramping and chronic global abdominal pain. Complications: No immediate complications. Procedure: Pre-Anesthesia Assessment: - Prior to the procedure, a History and Physical was performed, and patient medications and allergies were reviewed. The patient is competent. The risks and benefits of the procedure and the sedation options and risks were discussed with the patient. All questions were answered and informed consent was obtained. Patient identification and proposed procedure were verified by the physician in the pre-procedure area. Mental Status Examination: alert and oriented. Airway Examination: normal oropharyngeal airway and neck mobility. Respiratory Examination: clear to auscultation. CV Examination: normal. Prophylactic Antibiotics: The patient does not require prophylactic antibiotics. Prior Anticoagulants: The patient has taken no anticoagulant or antiplatelet agents. ASA Grade Assessment: II - A patient with mild systemic disease. After reviewing the risks and benefits, the patient was deemed in satisfactory condition to undergo the procedure. The anesthesia plan was to use monitored anesthesia care (MAC). Immediately prior to administration of medications, the patient was re-assessed for adequacy to receive sedatives. The heart rate, respiratory rate, oxygen saturations, blood pressure, adequacy of pulmonary ventilation, and response to care were monitored throughout the procedure. The physical status of the patient was re-assessed after the procedure. After obtaining informed consent, the endoscope was passed under direct vision. Throughout the procedure, the patient's blood pressure, pulse, and oxygen saturations were monitored continuously. The Colonoscope was introduced through the mouth, and advanced to the second part of duodenum. The upper GI endoscopy was accomplished without difficulty. The patient tolerated the procedure well. Scope In: 6:43:42 AM Scope Out: 6:51:16 AM Total Procedure Duration Time 0 hours 7 minutes 34 seconds Findings: The Z-line was irregular and was found 38 cm from the incisors. Biopsies were taken with a cold forceps for histology. Verification of patient identification for the specimen was done. Estimated blood loss was minimal. No gross lesions were noted in the entire examined stomach. Patchy mildly erythematous mucosa without bleeding was found in the gastric antrum. Biopsies were taken with a cold forceps for Helicobacter pylori testing. Verification of patient identification for the specimen was done. Biopsies were taken with a cold forceps for histology. Verification of patient identification for the specimen was done. Estimated blood loss was minimal. A small polypoid mass with no bleeding was found in the second portion of the duodenum. Biopsies were taken with a cold forceps for histology. Verification of patient identification for the specimen was done. Estimated blood loss was minimal. Three non-bleeding superficial duodenal ulcers with no stigmata of bleeding were found in the second portion of the duodenum. The largest lesion was 3 mm in largest dimension. Biopsies were taken with a cold forceps for histology. Verification of patient identification for the specimen was done. Estimated blood loss was minimal. Impression: - Z-line irregular, 38 cm from the incisors. Biopsied. - No gross lesions in the entire stomach. - Erythematous mucosa in the antrum. Biopsied. - Likely benign duodenal mass. Biopsied. - Non-bleeding duodenal ulcers with no stigmata of bleeding. Biopsied. Recommendation: - Discharge patient to home. - Resume previous diet. - Continue present medications. - Await pathology results. - Repeat upper endoscopy for surveillance based on pathology results. Procedure Code(s): --- Professional --- 07655, Esophagogastroduodenoscopy, flexible, transoral; with biopsy, single or multiple CPT copyright 2021 [employer]. All rights reserved. The codes documented in this report are preliminary and upon manager proposal review may be revised to meet current compliance requirements. Kris Lam DO 12/01/2022 7:17:59 AM This report has been signed electronically. Number of Addenda: 0 Note Initiated On: 12/01/2022 6:34 AM
--- NOTE | 2022-12-01 07:19 | OP.CCLET_ITS ---
12/01/2022 Brittany Estrada [facility] [address] [place] [address] Re : Upper GI endoscopy procedure for Mariangel Santana Dear Dr. Estrada This procedure was performed on November. My impressions and recommendations are as follows: Impressions : - Z-line irregular, 38 cm from the incisors. Biopsied. - No gross lesions in the entire stomach. - Erythematous mucosa in the antrum. Biopsied. - Likely benign duodenal mass. Biopsied. - Non-bleeding duodenal ulcers with no stigmata of bleeding. Biopsied. Recommendations : - Discharge patient to home. - Resume previous diet. - Continue present medications. - Await pathology results. - Repeat upper endoscopy for surveillance based on pathology results. My findings are described in the full procedure note, which is enclosed. If I can be of further assistance, please feel free to contact me at . Sincerely, Kris Lam, 12/01/2022 7:17:59 AM This report has been signed electronically.
[2022-12-01 07:20] VITALS: BP 117/82; BP 99/64; PULSE 72; RESP 16; O2SAT 100
--- NOTE | 2022-12-01 07:23 | OP.COLON_ITS ---
Patient Name: Mariangel Santana Procedure Date: 12/01/2022 6:51 AM Date of : 1970 Age: 52 Procedure: Colonoscopy Indications: Suspected Crohn's disease of the small bowel and colon Providers: Kris Lam DO Referring MD: Kris Lam DO Medicines: Monitored Anesthesia Care Patient Profile: This is a 52 year old female. Refer to note in patient chart for documentation of history and physical. Patient has symptoms of chronic abdominal cramping and chronic global abdominal pain. Last Colonoscopy: 3 years ago. Complications: No immediate complications. Procedure: Pre-Anesthesia Assessment: - Prior to the procedure, a History and Physical was performed, and patient medications and allergies were reviewed. The patient is competent. The risks and benefits of the procedure and the sedation options and risks were discussed with the patient. All questions were answered and informed consent was obtained. Patient identification and proposed procedure were verified by the physician in the pre-procedure area. Mental Status Examination: alert and oriented. Airway Examination: normal oropharyngeal airway and neck mobility. Respiratory Examination: clear to auscultation. CV Examination: normal. Prophylactic Antibiotics: The patient does not require prophylactic antibiotics. Prior Anticoagulants: The patient has taken no anticoagulant or antiplatelet agents. ASA Grade Assessment: II - A patient with mild systemic disease. After reviewing the risks and benefits, the patient was deemed in satisfactory condition to undergo the procedure. The anesthesia plan was to use monitored anesthesia care (MAC). Immediately prior to administration of medications, the patient was re-assessed for adequacy to receive sedatives. The heart rate, respiratory rate, oxygen saturations, blood pressure, adequacy of pulmonary ventilation, and response to care were monitored throughout the procedure. The physical status of the patient was re-assessed after the procedure. After I obtained informed consent, the scope was passed under direct vision. Throughout the procedure, the patient's blood pressure, pulse, and oxygen saturations were monitored continuously. The Colonoscope was introduced through the anus and advanced to the ileocecal valve. The colonoscopy was performed without difficulty. The patient tolerated the procedure well. The quality of the bowel preparation was good. The ileocecal valve, appendiceal orifice, and rectum were photographed. Scope In: 6:52:54 AM Scope Withdrawal Time 0 hours 14 minutes 51 seconds Scope Out: 7:09:36 AM Total Procedure Duration Time 0 hours 16 minutes 42 seconds Findings: Hemorrhoids were found on perianal exam. A few two mm ulcers were found in the sigmoid colon. No bleeding was present. No stigmata of recent bleeding were seen. A benign-appearing, intrinsic severe stenosis was found at the ileocecal valve and was non-traversed. Biopsies were taken with a cold forceps for histology. Verification of patient identification for the specimen was done. Estimated blood loss was minimal. The exam was otherwise without abnormality on direct and retroflexion views. Impression: - Hemorrhoids found on perianal exam. - A few ulcers in the sigmoid colon. - Stricture at the ileocecal valve. Biopsied. - The examination was otherwise normal on direct and retroflexion views. Recommendation: - Discharge patient to home. - Resume previous diet. - Continue present medications. - Await pathology results. - Repeat colonoscopy to assess disease activity. - Return to GI office. -MRI enterography Procedure Code(s): --- Professional --- 99096, Colonoscopy, flexible; with biopsy, single or multiple CPT copyright 2021 [employer]. All rights reserved. The codes documented in this report are preliminary and upon wireline field operator review may be revised to meet current compliance requirements. Kris Lam DO 12/01/2022 7:23:35 AM This report has been signed electronically. Number of Addenda: 0 Note Initiated On: 12/01/2022 6:51 AM
--- NOTE | 2022-12-01 07:24 | OP.CCLET_ITS ---
12/01/2022 Brittany Estrada [facility] [address] [place] [address] Re : Colonoscopy procedure for Mariangel Santana Dear Dr. Estrada This procedure was performed on November. My impressions and recommendations are as follows: Impressions : - Hemorrhoids found on perianal exam. - A few ulcers in the sigmoid colon. - Stricture at the ileocecal valve. Biopsied. - The examination was otherwise normal on direct and retroflexion views. Recommendations : - Discharge patient to home. - Resume previous diet. - Continue present medications. - Await pathology results. - Repeat colonoscopy to assess disease activity. - Return to GI office. -MRI enterography My findings are described in the full procedure note, which is enclosed. If I can be of further assistance, please feel free to contact me at . Sincerely, Kris Friend, 12/01/2022 7:23:35 AM This report has been signed electronically.
[2022-12-01 07:25] VITALS: BP 100/70; BP 117/82; PULSE 79; RESP 16; O2SAT 100
[2022-12-01 07:30] VITALS: BP 117/82; BP 98/65; PULSE 75; RESP 16; TEMP 36.2; O2SAT 100
[2022-12-01 07:44] VITALS: BP 117/82
== END 2022-12-01 08:05 | disposition home or self-care (01) ==
LOC: EN 05:30 → AC 05:31
PROVIDERS: PCP Internal Medicine; Referring Provider Internal Medicine; Visit Provider Internal Medicine Gastroenterology
PROC: 0DJD8ZZ Inspection of Lower Intestinal Tract, Via Natural or Artificial Opening Endoscopic (ICD-10-PCS; CPT 45378; principal; 2022-12-01 06:25)
DX: K31.7 Polyp of stomach and duodenum (principal); K63.3 Ulcer of intestine; K64.9 Unspecified hemorrhoids; K58.0 Irritable bowel syndrome with diarrhea; G89.29 Other chronic pain; I10 Essential (primary) hypertension; E66.9 Obesity, unspecified; Z68.34 Body mass index [BMI] 34.0-34.9, adult; Z90.49 Acquired absence of other specified parts of digestive tract; Z79.899 Other long term (current) drug therapy
CPT/HCPCS: 43239; 45380; 88305; 88313; 88342; J7120; J2405

== ENCOUNTER → 2022-12-15 | Outpatient (CLI) | payer OTHER, SELFPAY ==
[2022-12-15 11:21] LABS: Rubella IgG Reactive (Nonreactive)
[2022-12-20 00:07] LABS: B. pertussis IgG 1.45 index (0.00-0.94); HEPATITIS B SURFACE AG Negative (Negative); Hep C Antibodies Non Reactive (Non Reactive); Hepatitis A IgM Antibody Negative (Negative); Hepatitis B Core AB IgM Negative (Negative); Mumps Antibody, IgM < 0.80 AU (0.00-0.79); QNTFERON TB Mitogen Value > 10.00 IU/mL (.); QNTFERON TB Nil Value 0.06 IU/mL (.); QNTFERON TB1+ Ag Value 0.08 IU/mL (.); QNTFERON TB2+ Ag Value 0.08 IU/mL (.); QNTIFERON TB Positive Criteria Negative (Negative); V-Zoster IgG (Immunity) 1359 index (Immune >165)
== END | disposition home or self-care (01) ==
LOC: LAB 09:41
PROVIDERS: PCP Internal Medicine; Referring Provider Internal Medicine Gastroenterology; Visit Provider Internal Medicine Gastroenterology
DX: K58.9 Irritable bowel syndrome, unspecified (principal)
CPT/HCPCS: 36415; 80074; 86480; 86615; 86735; 86762; 86787

== ENCOUNTER 2023-01-09 16:48 | Outpatient (RCR) | payer OTHER, SELFPAY ==
--- NOTE | 2023-01-17 07:53 | HP.FCE ---
Task Lift Floor (Occasional 1-33% of Day): 20# Floor (Frequent 34-66% of Day): 10# Floor (Constant 67-100% of Day): NA Floor PDL: Light Knee (Occasional 1-33% of Day): 20# Knee (Frequent 34-66% of Day): 10# Knee (Constant 67-100% of Day): NA Knee PDL: Light Waist (Occasional 1-33% of Day): 20# Waist (Frequent 34-66% of Day): 10# Waist (Constant 67-100% of Day): NA Waist PDL: Light Shoulder (Occasional 1-33% of Day): 15# Shoulder (Frequent 34-66% of Day): 8# Shoulder (Constant 67-100% of Day): NA Shoulder PDL: Sedentary-Light Overhead (Occasional 1-33% of Day): 10# Overhead (Frequent 34-66% of Day): NA Overhead (Constant 67-100% of Day): NA Overhead PDL: Sedentary Comments: Pt on 20# lifting restrictions Physical demand level for lifting at floor/knee/waist levels is LIGHT Physical demand level for lifting shoulder level Sedentary-light Physical demand level for lifting overhead Sedentary Work Activity/Posture Bending: Occasional Ability (1-33% of day) Squatting: Occasional Ability (1-33% of day) Kneeling: Occasional Ability (1-33% of day) Reaching out: Frequent Ability (34-66% of day) Reaching up: Frequent Ability (34-66% of day) Sitting: Frequent Ability (34-66% of day) Walking: Frequent Ability (34-66% of day) Standing: Frequent Ability (34-66% of day) Comments: with shifting body weight Reference Reference: Duration Sedentary Sedentary Light Light Light Medium Medium Medium Heavy Very Heavy Heavy Occasional (0-33% of day) Frequent (34-66% of day) Constant (67-100% of day) 10 # Negligible Negligible 15 # 8 # Negligible 20 # 10# Negli. 35 # 18 # 7 # 50 # 25 # 10 # 75 # 100 # >100 # 38 # 50 # >50 # 15 # 20 # >20 # Patient Information Height: 1.6 m Weight:: 86.183 kg Hand Dominance: right Medical History Medical History Including Restrictions: Pt states she was dx with DDD in 2011. pt states the last few years she struggled with lifting and has modified her job duties. pt states she was struggling at work the last month and went to Dr. Estrada to get work restrictions so she can continue working at the [employer]. pt states Dr. Estrada placed her on a lifting restriction about 4 weeks ago (or more) pt states she feels she is doing ok with her 20# lift restrictions. pt states she did have a MRI last month for her Crohn's. pt states has not seen physical therapy for her low back pain Diagnoses Diagnoses: DDD dx in 2011 Hiatal hernia dx 2020 Crohn's dx 2009 Symptoms Symptoms: back pain sleep disturbance right leg pain and numbness Pain Pain: pt takes anti-inflammatories about 2x a day. pt arrives after work and states low back pain 7-11/03. throughout assessment pt continued to have fluctuation in her pain ranging from 7-8/10- 9/10. 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 Pt states she works 8 hours a day M-F. pt states job requires her to lift 50#. 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 pt has cleaning cart in each building- does need to walk from building to building. lifting sweepers and mop bucket are the most difficult to perform. pt states this gives her back pain. 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 Behavioral Behavioral: pt arrives from work: states sore and tired ADLS ADLS: Pt lives with her in one story home. Pt has 4 entry steps without railing. Pt does not have basement. Laundry/bed/bathroom on first floor. pt states she is IND. with all ADLs and IADLs Pt drives IND. pt states she does cooking/cleaning and laundry. pt does grocery shopping. Physical Examination Physical Examination: resting heart rate: 84 ROM: pt demo all ROM WNL Strength: Fet2 Peak force in lbs shoulder flexion right 12.5# left 9.2# shoulder extension right 23# left 23# biceps right 20# left 19# triceps right 19# left 22# Hip flexion right 32# left 32.8# Quadricep right 22.3# left 36# Hamstring right 22# left 21# Right Pharmacist Critical Care Strength Average: 56.66 Right Pharmacist Critical Care Strength Percentile: 19% Left Pharmacist Critical Care Strength Average: 43.33 Left Pharmacist Critical Care Strength Percentile: 6% Right Lateral Pinch Average: 10.00 Right Lateral Pinch Percentile: 25% Left Lateral Pinch Average: 10.00 Left Lateral Pinch Percentile: 25% Right Tripod Pinch Average: 10.00 Right Tripod Pinch Percentile: 25% Left Tripod Pinch Average: 10.00 Left Tripod Pinch Percentile: 50# Sensation: denies Fine Motor: denies Balance: functional reach 10.5 Interpretation: A score of 6 or less indicates a significant increased risk for falls. A score between 6-10 inches indicates a moderate risk for falls. pt demo good balance throughout assessment Non Material Handling Activities Bending: pt demo the ability to bending forward 3/3x, 10/10x, and 10/10x rapidly reports low back pain 9/10 did use external support heart rate 95 pt can bend forward on occasional ability Squatting: pt demo the ability to squat 3/3x, 10/10x, and 10/10x rapidly with external support heart rate 108 pt reports back pain 7-8/10 pt can squat on occasional ability due to pain level Kneeling: pt demo the ability to kneel 3/3x, 10/10x. with external support heart rate 107 pt can kneel on occasional ability with external support Reaching out/up: pt demo the ability to reach up/out 3/3x, 10/10x, 10x rapidly pt completed while standing reports low back pain 7-8/10 heart rate 98 Walkin min of ambulation-with antalgic step pattern pt did arrive after work where she is on her feet for at least 7 /8 hour work day 30 min lunch and two 15 min breaks. pt can ambulate on frequent ability Standing: pt demo the ability to stand for 8 min with shifting body weight pt can stand on frequent ability Sitting: pt demo the ability to sit for 45min with no apparent discomfort Climbing Stairs: pt ascended and descended 10 steps with a reciprocal step patter with use of railing. Dynamic Occasional Lifting Capacity Floor Lift: pt demo the ability to lift 20# maximally from this level with poor lifting mechanics. Knee Lift: pt demo the ability to lift 20# maximally from this level with fair lifting mechanics. Waist Lift: pt demo the ability to lift 20# maximally from this level with fair lifting mechanics. Shoulder Lift: pt demo the ability to lift 20# maximally from this level with fair lifting mechanics. Overhead Lift: pt demo the ability to lift 10# maximally from this level with fair lifting mechanics. Carrying: pt demo the ability to carry 20# for 40 feet with good ability Comments: pt demo good effort throughout assessment
--- NOTE | 2023-01-17 07:53 | HP.OTFCE.D ---
FCE D/C Summary Discharge text: SEFERINO HOLLINGSWORTH was seen for a one time visit for an FCE on 01/09/23 and is discharged.
== END 2023-01-09 19:00 | disposition home or self-care (01) ==
LOC: OT 16:48
PROVIDERS: PCP Internal Medicine; Referring Provider Internal Medicine; Visit Provider Internal Medicine
DX: M51.37 Other intervertebral disc degeneration, lumbosacral region (principal); E66.9 Obesity, unspecified
CPT/HCPCS: 97750

== ENCOUNTER → 2023-04-19 | Outpatient (CLI) | payer OTHER, SELFPAY ==
--- NOTE | 2023-04-19 12:45 | RAD_ITS ---
STUDY: X-RAY - CERVICAL SPINE REASON FOR EXAM: Female, 52 years old. Left shoulder pain. No injury. TECHNIQUE: view(s) of the cervical spine were obtained. COMPARISON: None FINDINGS: Normal anterior atlantoaxial articulation. Normal odontoid process. Normal cervical lordosis. Normal vertebral bodies and endplates. Normal disc space heights. Normal visualized intervertebral neuroforamina. The soft tissue structures are unremarkable. RAD/Cerv Spine 2 or 3 Views IMPRESSION: Normal x-ray examination of the visualized cervical spine. Electronically Signed: Rick Virgen MD at 14:18 EST ,
--- NOTE | 2023-04-19 12:45 | RAD_ITS ---
STUDY: X-RAY - LEFT SHOULDER REASON FOR EXAM: Female, 52 years old. Left shoulder pain. No history of trauma. TECHNIQUE: 4 view(s) of the shoulder. COMPARISON: None. FINDINGS: Normal glenohumeral articulation. Normal acromioclavicular joint. Normal acromion. Normal humeral head and visualized proximal humerus. The soft tissue structures are unremarkable. Normal visualized pulmonary apex. RAD/Shoulder min 2 Views IMPRESSION: Normal x-ray examination of the shoulder. Electronically Signed: Rick Virgen MD at 14:19 EST ,
--- NOTE | 2023-04-19 12:45 | RAD_ITS ---
STUDY: X-RAY - RIGHT KNEE REASON FOR EXAM: Female, 52 years old. Right knee pain. No evidence of injury. TECHNIQUE: 3 view(s) of the knee. COMPARISON: None. FINDINGS: Normal visualized distal femur. Normal visualized proximal tibia and fibula. Normal proximal tibiofibular articulation. Normal medial femorotibial compartment. Normal lateral femorotibial compartment. Normal patellofemoral articulation. The soft tissue structures are unremarkable. RAD/Knee 3 Views IMPRESSION: Normal x-ray examination of the knee. Electronically Signed: Rick Virgen MD at 14:20 EST ,
--- OUTSIDE RECORDS SUMMARY | 2023-04-19 13:05 | XMS RPT_ITS | CCD ---
Author Name Unknown Address [address] [facility] [address] [place] [address] Organization [facility] Care Team Providers Care Country Director Name Role Phone Unavailable Primary Care Provider Unavailabl e GERARDO, ASHOK Attending Unavailable ASHOK CARRILLO Referring Unavailable Allergies Allergy Classification Reported Allergen(s) Allergy Type Date of Onset Reaction(s) Facility (2 sources) Contrast media; Translations: [CONTRAST DYE] Drug Allergy 2 [facility] (2 sources) Iodine; Translations: [IODINE] Drug Allergy 9 [facility] (2 sources) Penicillins; Translations: [PENICILLINS] Propensity to adverse reactions 5 [facility], [facility] Work Phone: (2 sources) Sulfonamides (Antibiotic); Translations: [SULFA (SULFONAMIDE ANTIBIOTICS)] Drug Allergy 0 [facility] Work Phone: Medications Completed/Discontinued Medications Medication Drug Class(es) Dates Sig (Normalized) Sig (Original) bifidobacterium infantis 4 mg oral capsule (1 source) Start: 08-20-2020 End: 07-07-2022 take 1 capsule by mouth once daily Bifidobacterium Infantis (ALIGN) 4 mg cap Take 1 capsule by mouth once daily. 30 capsule 2 08/20/2020 07/07/2022 Discontinued Problems Active Problems Problem Classification Problem Date Documented Da te Episodic/Chronic Conduction disorders (1 source) Right bundle branch block; Translations: [Unspecified right bundle-branch block] Onset: 12-30-2014 12-30-2014 Chronic Other nutritional; endocrine; and metabolic disorders (1 source) Morbid obesity; Translations: [Morbid (severe) obesity due to excess calories] Onset: 02-17-2009 02-17-2009 Chronic Other screening for suspected conditions (not mental disorders or infectious disease) (2 sources) Patient encounter status; Translations: [Encounter for screening mammogram for malignant neoplasm of breast] Onset: 07-07-2022 Episodic Regional enteritis and ulcerative colitis (2 sources) Crohn's disease; Translations: [Crohn's disease, unspecified, without complications] Onset: 11-02-2011 11-02-2011 Chronic Residual codes; unclassified (1 source) Obstructive sleep apnea syndrome; Translations: [Obstructive sleep apnea (adult) (pediatric)] Onset: 12-14-2016 12-14-2016 Chronic Residual codes; unclassified (1 source) Daytime somnolence; Translations: [Other hypersomnia] Onset: 12-14-2016 12-14-2016 Chronic Past or Other Problems Problem Classification Problem Date Documented Da te Episodic/Chronic Sprains and strains (1 source) Low back strain; Translations: [Strain of muscle, fascia and tendon of lower back, initial encounter] Onset: 02-26-2020 02-26-2020 Episodic Results Test Name Value Interpretation Reference Range Facil ity Vital Signs Date Time Vital Sign Value Performing Clinician Faci lity 07-07-2022 06:59-0400 Body height 158.8 cm Ashok [place] VOLUNTEER RECRUITER.REPAIRER [employer] Work Phone: [facility] 07-07-2022 06:59-0400 Body weight 93.17 kg Ashok [place]ardo VOLUNTEER RECRUITER.REPAIRER [employer] Work Phone: [facility] 07-07-2022 06:59-0400 Diastolic blood pressure 80 mm[Hg] Ashok [place] VOLUNTEER RECRUITER.REPAIRER [employer] Work Phone: [facility] 07-07-2022 06:59-0400 Systolic blood pressure 144 mm[Hg] Ashok [place] VOLUNTEER RECRUITER.REPAIRER [employer] Work Phone: [facility] Encounters Encounter Date Encounter Type Care Provider Facility Start: 08-25-2022 End: 08-25-2022 ambulatory [facility] Facility:[facility] Start: 07-07-2022 End: 07-08-2022 [facility] Facility:[facility] Start: 07-07-2022 Encounter for gynecological examination (general) (routine) without abnormal findings ASHOKXU FISHGERARDO [facility] Start: 07-07-2022 End: 07-07-2022 Patient encounter procedure Ashok Carrillo APRN.CNP Work Phone: OB/Gynecology Procedures Date Procedure Procedure Detail Performing Clinician Start: 07-29-2020 Mammography Ashok [place] VOLUNTEER RECRUITER.MALENA Work Phone: Start: 07-22-2020 Colonoscopy Ashok [place] VOLUNTEER RECRUITER.MALENA Work Phone: Plan of Treatment Date Care Activity Detail Author Start: 2032 HEPATITIS B (1 of 3 - Risk 3-dose series) HEPATITIS B (1 of 3 - Risk 3-dose series) [facility] Start: 07-29-2025 HPV TESTING HPV TESTING [facility] Start: 07-29-2025 PAP TESTING PAP TESTING [facility] Start: 07-22-2025 Colonoscopy COLONOSCOPY [facility] Start: 07-22-2025 COLORECTAL CANCER SCREENING COLORECTAL CANCER SCREENING [facility] Start: 11-18-2023 DIABETES SCREEN DIABETES SCREEN [facility] Start: 07-23-2023 COLOGUARD (FIT-DNA) COLOGUARD (FIT-DNA) [facility] Start: 11-25-2022 Influenza vaccination INFLUENZA (Season Ended) [facility] Start: 03-27-2022 DEPRESSION ASSESSMENT DEPRESSION ASSESSMENT [facility] Start: 08-19-2021 LIPID SCREEN LIPID SCREEN [facility] Start: 07-29-2021 Mammography MAMMOGRAM [facility] Start: [address] COLONOGRAPHY [facility] Start: 2017 FECAL OCCULT BLOOD FECAL OCCULT BLOOD [facility] Start: 2017 SIGMOIDOSCOPY SIGMOIDOSCOPY [facility] Start: 09-03-1991 Urine microalbumin profile DTAP,TDAP,TD (1 - Tdap) [facility] Start: 1990 HEPATITIS C SCREENING HEPATITIS C SCREENING [facility] Start: 1990 HIV SCREENING HIV SCREENING [facility] Start: 1990 MMR (1 of 2 - Risk 2-dose series) MMR (1 of 2 - Risk 2-dose series) [facility] Start: 1973 HEPATITIS A (1 of 2 - Risk 2-dose series) HEPATITIS A (1 of 2 - Risk 2-dose series) [facility] Start: 03-04-1973 COVID-19 VACCINE (#1) COVID-19 VACCINE (#1) [facility] End: 08-06-2023 TAVON SCREENING TAVON SCREENING Radiology Routine Encounter for screening mammogram for breast cancer 1 Occurrences starting 07/07/2022 until 08/06/2023 [facility] Work Phone: Payers Date Payer Category Payer Unknown [facility] [employer] [place] [employer] [id number] 2019-Present [phone] [address] [place] [address] PPO [id number] 2019 Unknown [id number] Social History Date Type Detail Facility Start: [facility]07[facility]22 [facility] Work Phone: Start: 07-07-2022 Tobacco use and exposure Smokeless tobacco non-user [facility] Work Phone: Start: 07-07-2022 Alcohol intake Current non-dr meal miller of alcohol (finding) [facility] Start: 07-07-2022 Tobacco Comment occasional tob acco use in highschool. [facility] Start: 1970 Sex Assigned At Not on file [facility] Progress note 08-25-2022 Note Date & Type Note Facility 08-25-2022 Note HNO ID: [id number] Author: Leatha Claros, [employer] Service: ? Author Type: Mobile Application Developer Type: Progress Notes Filed: 08/25/2022 10:26 AM Note Text: Radiology Service Progress Note PATIENT NAME: Mariangel Hollingsworth DATE OF SERVICE: August 25, 2022 TIME: 10:13 AM PATIENT IDENTITY VERIFICATION COMPLETED USING TWO (2) IDENTIFIERS: Name and Date of confirmed by patient verbally. FALL SCREENING: Has the patient had 2 falls in the last year or 1 fall with injury or currently using an Ambulatory Assistive Device (Walker, Cane, Wheelchair, Crutches, etc.)? No PATIENT GENDER DATA: Female. status: : No status: NO. PATIENT RELEVANT IMPLANT DATA REVIEWED: Not Applicable RADIOLOGY DEPARTMENT: Mammography PERIPHERAL IV DATA: Not applicable SIGNED BY: David Hawleyo [place] August 25, 2022 10:13 AM [facility] Progress note 07-07-2022 Note Date & Type Note Facility 07-07-2022 Note HNO ID: [id number] Author: Ashok Carrillo APRN.REPAIRER [employer] Service: ? Author Type: Nurse Practitioner Type: Progress Notes Filed: 07/07/2022 7:30 AM Note Text: Mariangel is a 51 year old who presents for an annual gynecologic exam with complaints, concerned about a hemorrhoid or abscess. Notice it about 1 week ago some pain no bleeding . Menses: no menses - postmenopausal. 04/2020 HPV vaccine: No Last Pap: 08/04/2020 normal HPV: 07/31/2020 negative History of abnormal pap: No Last mammogram: 2020normal Sexually active: Yes Patient concerns for STD exposure: No. 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 LMP: 11/27/2019, Age at Menarche: Age at First : Age at Menopause: Fancy [employer] Drawer History Comments: Sexual Activity: Yes; Male; withdrawal Contraception: None PAST MEDICAL HISTORY Diagnosis Date Anal fistula 2008 Bilateral ovarian cysts 11/02/2011 Crohn's disease (HCC) 09/2009 Diarrhea Dysmetabolic syndrome X 08/05/2010 Esophageal reflux Gallbladder disease Hiatal hernia Hyperlipidemia LDL goal <130 08/18/2016 ASHLYN (obstructive sleep apnea) AutoPAP 5/15 cm [facility] Other disorder of muscle, ligament, and fascia Regional enteritis of unspecified site PAST SURGICAL HISTORY Procedure Laterality Date COLONOSCOPY FLX DX W/COLLJ SPEC WHEN PFRMD 11/27/2009 Colonoscopy COLONOSCOPY FLX DX W/COLLJ SPEC WHEN PFRMD 12/31/2014 Colonoscopy COLONOSCOPY FLX DX W/COLLJ SPEC WHEN PFRMD 07/22/2020 CYSTOSCOPY Left 12/14/2018 stent placement EGD 12/31/2014 ESOPHAGOGASTRODUODENOSCOPY TRANSORAL DIAGNOSTIC 07/22/2020 LITHOTRIPSY / 1 SIDE Left 12/14/2018 extracorporeal shockwave PAST SURGICAL HISTORY OF NASAL FX REPAIR STEREOTACTIC CORE BIOPSY 10/03/2006 right SURG TX ANAL FISTULA SUBQ 07/09/07 03/02/11 FAMILY HISTORY Problem Relation Age of Onset Hypertension Mother Coronary Artery Disease Father Diabetes Father other (gout) Father Diabetes Maternal Grandmother Heart Maternal Grandmother Cancer Paternal Grandmother breast SOCIAL HISTORY Social History Tobacco Use Smoking status: Never Smokeless tobacco: Never Tobacco comments: occasional tobacco use in highschool. Vaping Use Vaping Use: Never used Substance Use Topics Alcohol use: No Drug use: No Comment: REVIEW OF SYSTEMS Abdomen: No abdominal pain, nausea, vomiting, diarrhea, or constipation. No bloating, early satiety, indigestion, or increased flatulence. +gallbladder issue Bladder: No dysuria, gross hematuria, urinary frequency, urinary urgency, or incontinence. Breast: No breast lumps, nipple d/c, overlying skin changes, redness or skin retraction. Allergies and current medication updated:Yes EXAM: Ht 5' 2.5 (1.59m) Wt 205 lb 6.4 oz (93.2kg) LMP 11/27/2019 BMI 36.95 kg/(m2). GENERAL: pleasant, female in no apparent distress HEENT: Normocephalic, atraumatic, and no lesions NECK: Supple, full range of motion, no adenopathy, and thyroid normal DERMATOLOGY: Normal, without lesions, non-icteric, and non-hirsute BREAST: soft, non-tender, symmetric, no dominant mass, normal nipple-areolar complex, no lymphadenopathy, and no nipple discharge CHEST: Normal inspiratory effort ABDOMEN: soft, non-tender, and no masses PELVIC: external genitalia normal, normal Bartholin's glands, urethra, [place]'s glands, no vulvar lesions, no cervical lesions, physiologic discharge present, normal appearing perineal body and perianal region,+hemorrhoid BIMANUAL: uterus normal size, shape and consistency, no adnexal masses, and non-tender RECTOVAGINAL: deferred. NEURO: alert and oriented x3,exam grossly non-focal EXTREMITIES: normal ASSESSMENT/PLAN: 1) Health maintenance: Pap/HPV up to date. Mammogram ordered. Nutrition, exercise and routine health maintenance exams reviewed. Calcium/Vitamin D supplementation information provided. 2) Contraception: none. Contraceptive options reviewed and information provided. 3) STD screening: Declined STD check. 4) Follow up one year or sooner as needed Ashok Carrillo APRN.MALENA [facility] History of Present illness Narrative 07-07-2022 Ashok Carrillo APRN.CNP - 07/07/2022 6:57 AM EDT Note Date & Type Note Facility 07-07-2022 History of Presen t illness Narrative Mariangel is a 51 year old who presents for an annual gynecologic exam with complaints, concerned about a hemorrhoid or abscess. Notice it about 1 week ago some pain no bleeding . Menses: no menses - postmenopausal. 04/2020 HPV vaccine: No Last Pap: 08/04/2020 normal HPV: 07/31/2020 negative History of abnormal pap: No Last mammogram: 2020normal Sexually active: Yes Patient concerns for STD exposure: No. 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 LMP: 11/27/2019, Age at Menarche: Age at First : Age at Menopause: Fancy [employer] Drawer History Comments: Sexual Activity: Yes; Male; withdrawal Contraception: None PAST MEDICAL HISTORY Diagnosis Date Anal fistula 2008 Bilateral ovarian cysts 11/02/2011 Crohn's disease (HCC) 09/2009 Diarrhea Dysmetabolic syndrome X 08/05/2010 Esophageal reflux Gallbladder disease Hiatal hernia Hyperlipidemia LDL goal <130 08/18/2016 ASHLYN (obstructive sleep apnea) AutoPAP 5/15 cm [facility] Other disorder of muscle, ligament, and fascia Regional enteritis of unspecified site PAST SURGICAL HISTORY Procedure Laterality Date COLONOSCOPY FLX DX W/COLLJ SPEC WHEN PFRMD 11/27/2009 Colonoscopy COLONOSCOPY FLX DX W/COLLJ SPEC WHEN PFRMD 12/31/2014 Colonoscopy COLONOSCOPY FLX DX W/COLLJ SPEC WHEN PFRMD 07/22/2020 CYSTOSCOPY Left 12/14/2018 stent placement EGD 12/31/2014 ESOPHAGOGASTRODUODENOSCOPY TRANSORAL DIAGNOSTIC 07/22/2020 LITHOTRIPSY / 1 SIDE Left 12/14/2018 extracorporeal shockwave PAST SURGICAL HISTORY OF NASAL FX REPAIR STEREOTACTIC CORE BIOPSY 10/03/2006 right SURG TX ANAL FISTULA SUBQ 07/09/07 03/02/11 FAMILY HISTORY Problem Relation Age of Onset Hypertension Mother Coronary Artery Disease Father Diabetes Father other (gout) Father Diabetes Maternal Grandmother Heart Maternal Grandmother Cancer Paternal Grandmother breast SOCIAL HISTORY Social History Tobacco Use Smoking status: Never Smokeless tobacco: Never Tobacco comments: occasional tobacco use in highschool. Vaping Use Vaping Use: Never used Substance Use Topics Alcohol use: No Drug use: No Comment: REVIEW OF SYSTEMS Abdomen: No abdominal pain, nausea, vomiting, diarrhea, or constipation. No bloating, early satiety, indigestion, or increased flatulence. +gallbladder issue Bladder: No dysuria, gross hematuria, urinary frequency, urinary urgency, or incontinence. Breast: No breast lumps, nipple d/c, overlying skin changes, redness or skin retraction. Allergies and current medication updated:Yes EXAM: Ht 5' 2.5 (1.59m) Wt 205 lb 6.4 oz (93.2kg) LMP 11/27/2019 BMI 36.95 kg/(m^2). GENERAL: pleasant, female in no apparent distress HEENT: Normocephalic, atraumatic, and no lesions NECK: Supple, full range of motion, no adenopathy, and thyroid normal DERMATOLOGY: Normal, without lesions, non-icteric, and non-hirsute BREAST: soft, non-tender, symmetric, no dominant mass, normal nipple-areolar complex, no lymphadenopathy, and no nipple discharge CHEST: Normal inspiratory effort ABDOMEN: soft, non-tender, and no masses PELVIC: external genitalia normal, normal Bartholin's glands, urethra, [place]'s glands, no vulvar lesions, no cervical lesions, physiologic discharge present, normal appearing perineal body and perianal region,+hemorrhoid BIMANUAL: uterus normal size, shape and consistency, no adnexal masses, and non-tender RECTOVAGINAL: deferred. NEURO: alert and oriented x3,exam grossly non-focal EXTREMITIES: normal ASSESSMENT/PLAN: 1) Health maintenance: Pap/HPV up to date. Mammogram ordered. Nutrition, exercise and routine health maintenance exams reviewed. Calcium/Vitamin D supplementation information provided. 2) Contraception: none. Contraceptive options reviewed and information provided. 3) STD screening: Declined STD check. 4) Follow up one year or sooner as needed Ashok Carrillo APRN.CNP documented in this encounter [facility] Progress note 11-03-2020 Note Date & Type Note Facility 11-03-2020 Note HNO ID: [id number] Author: RT Julianne(R) Service: Radiology Author Type: Mobile Application Developer Type: Progress Notes Filed: 11/03/2020 9:24 AM Note Text: Radiology Service Progress Note DATE OF SERVICE: November 03, 2020 TIME: 9:21 AM PATIENT IDENTITY VERIFICATION COMPLETED USING TWO (2) STANDARD IDENTIFIERS: Name and Date of confirmed by patient verbally and Name and Date of confirmed by identification band. FALL SCREENING: Has the patient had 2 falls in the last year or 1 fall with injury or currently using an Ambulatory Assistive Device (Walker, Cane, Wheelchair, Crutches, etc.)? No PATIENT GENDER DATA: Female. status: : No status: NO. PATIENT RELEVANT IMPLANT DATA REVIEWED: Not Applicable ALLERGIES: Reviewed and unchanged CONTRAST ALLERGY: NO. EXAM: MRI - CONTRAST TYPE: GROUP II PERIPHERAL IV DATA: Ambulatory: A peripheral IV was started in the Left antecubital site with a Angio cath: 22 gauge. RADIOLOGY DEPARTMENT: MR; Exam(s) Completed: Body: enterography Abd/Pelvis SIGNATURE: RT Julianne(R) PATIENT NAME: Mariangel Hollingsworth DATE: November 03, 2020 TIME: 9:21 AM [facility] History of Past illness Narrative 08-18-2016 Note Date & Type Note Facility documented as of this encounter (statuses as of 07/07/2022) [facility] Evaluation note Note Date & Type Note Facility documented in this encounter [facility] Reason for referral (narrative) Diagnostic Procedure Only (Routine) - Pending Review Note Date & Type Note Facility Referral ID Status Reason Start Date Expiration Date Visits Requested Visits Authorized [id number] Pending Review Auto-Generat ed Referral 07/07/2022 08/06/2023 1 1 [facility] Summary Purpose Family History No Family History Records FoundNo Family History Records Found Advance Directives No Advanced Directives Records FoundNo Advanced Directives Records Found Additional Source Comments INFORMATION SOURCE (unrecogn ized section and content) DATE CREATED AUTHOR AUTHOR'S ZOILA ROUSE 09/03/2022 [facility] Source Comments (unrecognize d section and content) In the event this informatio n is protected by the Federal Confidentiality of Alcohol and Drug Abuse Patient Records regulations: The Federal rules restrict any use of the information to criminally investigate or prosecute any alcohol or drug abuse patient.[facility] Reason for Visit (unrecogniz ed section and content) FOR RECORDS PERTAINING TO PATIENTS WHO ARE OR HAVE BEEN ENROLLED IN A CHEMICAL DEPENDENCY/SUBSTANCEABUSE PROGRAM, SOME INFORMATION MAY BE OMITTED. This clinical summary was aggregated from multiple sources. Caution should be exercised in using it in the provision of clinical care. This summary normalizes information from multiple sources, and as a consequence, information in this document may materially change the coding, format and clinical context of patient data. In addition, data may be omitted in some cases. CLINICAL DECISIONS SHOULD BE BASED ON THE PRIMARY CLINICAL RECORDS. [employer] [facility]. provides no warranty or guarantee of the accuracy or completeness of information in this document.
== END | disposition home or self-care (01) ==
PROVIDERS: PCP Internal Medicine; Referring Provider Physician Assistant; Visit Provider Physician Assistant
DX: M54.2 Cervicalgia (principal); M25.561 Pain in right knee; M25.512 Pain in left shoulder
CPT/HCPCS: 72040; 73030; 73562

== ENCOUNTER → 2023-06-08 | Outpatient (CLI) | payer OTHER, SELFPAY ==
[2023-06-08 16:18] LABS: Absolute Lymphocyte Count 2.57 X10^3/uL (0.83-4.51); Absolute Neutrophil Count 5.2 X10^3/uL (2.0-7.7); Basophil# 0.08 X10^3/uL; Basophil% 0.9 % (0-1); Eosinophil# 0.21 X10^3/uL; Eosinophils% 2.4 % (0-5); Hematocrit 42.1 % (37-47); Hemoglobin 13.2 g/dL (12.0-15.0); Lymphocyte # 2.57 X10^3/ul (0.83-4.51); Lymphocyte % 29.6 % (19-41); Mean Corp Hgb Conc 31.4 g/dL (32-36); Mean Corpuscular Hgb 26.7 pg (27.0-32.0); Mean Corpuscular Volume 85.2 fL (81-99); Mean Platelet Vol. 8.6 fl (6.2-12.0); Monocyte# 0.55 X10^3/uL; Monocyte% 6.3 % (0-10); NRBC Flagged by Analyzer 0 % (0-5); Neutrophil # 5.22 X10^3/uL (2.7-7.7); Neutrophil % 60.3 % (47-70); Platelet Count 422 K/mm3 (150-450); RBC Distribution Width CV 12.8 % (11.6-14.6); RBC Distribution Width SD 39.7 fl (35.1-43.9); Red Blood Count 4.94 M/mm3 (4.2-5.4); White Blood Count 8.7 K/mm3 (4.4-11.0)
[2023-06-08 17:02] LABS: Vitamin D,25 Hydroxy 31.9 ng/mL
[2023-06-08 17:03] LABS: Hemoglobin A1c 6.8 % (3.8-5.6)
[2023-06-08 17:12] LABS: ALB/GLOB Ratio 0.9 RATIO (0.9-2.4); AST(SGOT) 18 U/L (15-37); Alanine Aminotransfer ALT/SGPT 24 U/L (13-56); Albumin, Serum 3.4 g/dL (3.2-5.0); Alkaline Phosphatase 90 U/L (45-117); Anion Gap 7 (5-15); BUN 13 mg/dL (7-18); BUN/Creat Ratio 16.8 RATIO (10-20); Chloride 104 mmol/L (98-107); Cholesterol 156 mg/dL (200); Creatinine, Serum 0.78 mg/dL (0.55-1.02); EST Glomerular Filtration Rate 83 mL/min (>60); Est Glom Filt Rate - Afr Amer 101 mL/min (>60); Globulin 3.6 g/dL (2.2-4.2); Glucose 143 mg/dL (74-106); High Density Lipoprotein 67 mg/dL; Potassium 4.2 mmol/L (3.5-5.1); Sodium Level 139 mmol/L (136-145); Thyroid Stim Hormone (TSH) 1.03 uIU/mL (0.358-3.74); Triglycerides 124 mg/dL; Very Low Density Lipoprotein 25 mg/dL (5-40)
--- OUTSIDE RECORDS SUMMARY | 2023-06-08 21:38 | XMS RPT_ITS | CCD ---
Author Name Unknown Address [address] [place] [address] Organization [facility] Care Team Providers Care Shank Cementer Hand Name Role Phone Unavailable Primary Care Provider Unavailabl e GERARDO, ASHOK Attending Unavailable ASHOK CARRILLO Referring Unavailable Allergies Allergy Classification Reported Allergen(s) Allergy Type Date of Onset Reaction(s) Facility (2 sources) Contrast media; Translations: [CONTRAST DYE] Drug Allergy 2 [facility] (2 sources) Iodine; Translations: [IODINE] Drug Allergy 9 [facility] (2 sources) Penicillins; Translations: [PENICILLINS] Propensity to adverse reactions 5 [facility], [facility] Work Phone: (2 sources) Sulfonamides (Antibiotic); Translations: [SULFA (SULFONAMIDE ANTIBIOTICS)] Drug Allergy 0 [facility] Work Phone: Medications Completed/Discontinued Medications Medication Drug [...] 07-07-2022 06:59-0400 Body height 158.8 cm Ashok Irwin STRIPPING SHOVEL OILER.MEDICAL OFFICE PROFESSIONAL INSTRUCTOR Work Phone: [facility] 07-07-2022 06:59-0400 Body weight 93.17 kg Ashok Gerardo STRIPPING SHOVEL OILER.MEDICAL OFFICE PROFESSIONAL INSTRUCTOR Work Phone: [facility] 07-07-2022 06:59-0400 Diastolic blood pressure 80 mm[Hg] Ashok Irwin STRIPPING SHOVEL OILER.MEDICAL OFFICE PROFESSIONAL INSTRUCTOR Work Phone: [facility] 07-07-2022 06:59-0400 Systolic blood pressure 144 mm[Hg] Ashok Gerardo STRIPPING SHOVEL OILER.MEDICAL OFFICE PROFESSIONAL INSTRUCTOR Work Phone: [facility] Encounters Encounter Date Encounter Type Care Provider Facility Start: 08-25-2022 End: 08-25-2022 ambulatory [facility] Facility:[facility] Start: 07-07-2022 End: 07-08-2022 [facility] Facility:[facility] Start: 07-07-2022 Encounter for gynecological examination (general) (routine) without abnormal findings ASHOKXU FISHGERARDO [facility] Start: 07-07-2022 End: 07-07-2022 Patient encounter procedure Ashok Carrillo APRN.CNP Work Phone: OB/Gynecology Procedures Date Procedure Procedure Detail Performing Clinician Start: 07-29-2020 Mammography Ashok Fish dick STRIPPING SHOVEL OILER.MALENA Work Phone: Start: 07-22-2020 Colonoscopy Ashok Fish dick STRIPPING SHOVEL OILER.MALENA Work Phone: Plan of Treatment Date Care Activity Detail Author Start: 2032 HEPATITIS B (1 of 3 - Risk 3-dose series) HEPATITIS B (1 of 3 - Risk 3-dose series) [facility] Start: 07-29-2025 HPV TESTING HPV TESTING [facility] Start: 07-29-2025 PAP TESTING PAP TESTING [facility] Start: 07-22-2025 Colonoscopy COLONOSCOPY [facility] Start: 07-22-2025 COLORECTAL CANCER SCREENING COLORECTAL CANCER SCREENING [facility] Start: 11-18-2023 DIABETES SCREEN DIABETES SCREEN [facility] Start: 07-23-2023 COLOGUARD (FIT-DNA) COLOGUARD (FIT-DNA) [facility] Start: 11-25-2022 Influenza vaccination INFLUENZA (Season Ended) [facility] Start: 03-27-2022 DEPRESSION ASSESSMENT DEPRESSION ASSESSMENT [facility] Start: 08-19-2021 LIPID SCREEN LIPID SCREEN [facility] Start: 07-29-2021 Mammography MAMMOGRAM [facility] Start: [address] COLONOGRAPHY [facility] Start: 2017 FECAL OCCULT BLOOD FECAL OCCULT BLOOD [facility] Start: 2017 SIGMOIDOSCOPY SIGMOIDOSCOPY [facility] Start: 09-03-1991 Urine microalbumin profile DTAP,TDAP,TD (1 - Tdap) [facility] Start: 1990 HEPATITIS C SCREENING HEPATITIS C SCREENING [facility] Start: 1990 HIV SCREENING HIV SCREENING [facility] Start: 1990 MMR (1 of 2 - Risk 2-dose series) MMR (1 of 2 - Risk 2-dose series) [facility] Start: 1973 HEPATITIS A (1 of 2 - Risk 2-dose series) HEPATITIS A (1 of 2 - Risk 2-dose series) [facility] Start: 03-04-1973 COVID-19 VACCINE (#1) COVID-19 VACCINE (#1) [facility] End: 08-06-2023 TAVON SCREENING TAVON SCREENING Radiology Routine Encounter for screening mammogram for breast cancer 1 Occurrences starting 07/07/2022 until 08/06/2023 [facility] Work Phone: Payers Date Payer Category Payer Unknown [facility] [employer] [place] [employer] [id number] 2019-Present [phone] [address] [place] [address] PPO [id number] 2019 Unknown [id number] Social History Date Type Detail Facility Start: 07-07-2022 [facility] Work Phone: Start: 07-07-2022 Tobacco use and exposure Smokeless tobacco non-user [facility] Work Phone: Start: 07-07-2022 Alcohol intake Current non-dr linker up of alcohol (finding) [facility] Start: 07-07-2022 Tobacco Comment occasional tob acco use in highschool. [facility] Start: 1970 Sex Assigned At Not on file [facility] Progress note 08-25-2022 Note Date & Type Note Facility 08-25-2022 Note HNO ID: [id number] Author: Leatha Claros, Potential Service: ? Author Type: Industrial Electrical Engineer Type: Progress Notes Filed: 08/25/2022 10:26 AM [...] Hawleyo Mecca August 25, 2022 10:13 AM [facility] Progress note 07-07-2022 Note Date & Type Note Facility 07-07-2022 Note HNO ID: [id number] Author: Ashok Carrillo APRN.MEDICAL OFFICE PROFESSIONAL INSTRUCTOR Service: ? Author Type: Nurse Practitioner Type: [...] L1 SAB0 IAB0 Ectopic0 Multiple0 Live Births0 Location Analyst History LMP: 11/27/2019, Age at Menarche: Age at First : Age at Menopause: Location Analyst History Comments: Sexual Activity: Yes; Male; withdrawal Contraception: None PAST MEDICAL HISTORY Diagnosis Date Anal fistula 2008 Bilateral ovarian cysts 11/02/2011 Crohn's disease (HCC) 09/2009 Diarrhea Dysmetabolic syndrome X 08/05/2010 Esophageal reflux Gallbladder disease Hiatal hernia Hyperlipidemia LDL goal <130 08/18/2016 ASHLYN (obstructive sleep apnea) AutoPAP 5/15 cm [facility] Other disorder of muscle, ligament, and fascia [...] external genitalia normal, normal Bartholin's glands, urethra, [place]'s glands, no vulvar lesions, no cervical lesions, [...] or sooner as needed Ashok Carrillo APRN.MALENA [facility] History of Present illness Narrative 07-07-2022 Ashok [...] L1 SAB0 IAB0 Ectopic0 Multiple0 Live Births0 Location Analyst History LMP: 11/27/2019, Age at Menarche: Age at First : Age at Menopause: Location Analyst History Comments: Sexual Activity: Yes; Male; withdrawal Contraception: None PAST MEDICAL HISTORY Diagnosis Date Anal fistula 2008 Bilateral ovarian cysts 11/02/2011 Crohn's disease (HCC) 09/2009 Diarrhea Dysmetabolic syndrome X 08/05/2010 Esophageal reflux Gallbladder disease Hiatal hernia Hyperlipidemia LDL goal <130 08/18/2016 ASHLYN (obstructive sleep apnea) AutoPAP 5/15 cm [facility] Other disorder of muscle, ligament, and fascia [...] external genitalia normal, normal Bartholin's glands, urethra, [place]'s glands, no vulvar lesions, no cervical lesions, [...] Ashok Carrillo APRN.CNP documented in this encounter [facility] Progress note 11-03-2020 Note Date & Type Note Facility 11-03-2020 Note HNO ID: [id number] Author: RT Julianne(R) Service: Radiology Author Type: Industrial Electrical Engineer Type: Progress Notes Filed: 11/03/2020 9:24 AM [...] 03, 2020 TIME: 9:21 AM [facility] History of Past illness Narrative 08-18-2016 Note Date & Type Note Facility documented as of this encounter (statuses as of 07/07/2022) [facility] Evaluation note Note Date & Type Note Facility documented in this encounter [facility] Reason for referral (narrative) Diagnostic Procedure Only (Routine) - Pending Review Note Date & Type Note Facility Referral ID Status Reason Start Date Expiration Date Visits Requested Visits Authorized [id number] Pending Review Auto-Generat ed Referral 07/07/2022 08/06/2023 1 1 [facility] Summary Purpose Family History No Family History Records FoundNo Family History Records Found Advance Directives No Advanced Directives Records FoundNo Advanced Directives Records Found Additional Source Comments INFORMATION SOURCE (unrecogn ized section and content) DATE CREATED AUTHOR AUTHOR'S ZOILA ROUSE 09/03/2022 [facility] Source Comments (unrecognize d section and content) In the event this informatio n is protected by the Federal Confidentiality of Alcohol and Drug Abuse Patient Records regulations: The Federal rules restrict any use of the information to criminally investigate or prosecute any alcohol or drug abuse patient.[facility] Reason for Visit (unrecogniz ed section and [...] BE BASED ON THE PRIMARY CLINICAL RECORDS. [employer] [facility]. provides no warranty or guarantee of the accuracy or completeness of information in this document.
== END | disposition home or self-care (01) ==
LOC: LAB 14:54
PROVIDERS: PCP Internal Medicine; Referring Provider Internal Medicine; Visit Provider Internal Medicine
DX: E55.9 Vitamin D deficiency, unspecified (principal); K50.90 Crohn's disease, unspecified, without complications; I10 Essential (primary) hypertension; M51.37 Other intervertebral disc degeneration, lumbosacral region; M54.12 Radiculopathy, cervical region; S46.912A Strain of unspecified muscle, fascia and tendon at shoulder and upper arm level, left arm, initial encounter; E66.9 Obesity, unspecified; E88.810 Metabolic syndrome; R73.9 Hyperglycemia, unspecified
CPT/HCPCS: 36415; 80053; 80061; 82306; 83036; 83525; 84443; 85025

== ENCOUNTER → 2023-08-15 | Outpatient (CLI) | payer MEDICAID, SELFPAY ==
--- NOTE | 2023-08-15 11:32 | US_ITS ---
EXAM: US LEFT UPPER EXTREMITY NON-VASCULAR, COMPLETE CLINICAL INDICATION: assess ganglion cyst -- left ring finger TECHNIQUE: Real-time ultrasound scan of the left upper extremity with image documentation. COMPARISON: No relevant prior studies available. FINDINGS: SOFT TISSUES: 7 x 5 mm complex fluid collection noted along the palpable lesion of the left hand consistent with seroma or ganglion cyst. No abnormal vascularity. No radiopaque foreign body. US/Ext Non Vasc Limited/Soft Tiss IMPRESSION: As above. Electronically Signed: Ridge Rosales MD at 9:11 EDT ,
== END | disposition home or self-care (01) ==
LOC: US 11:30
PROVIDERS: PCP Internal Medicine; Referring Provider Orthopaedic Surgery Sports Medicine; Visit Provider Orthopaedic Surgery Sports Medicine
DX: M67.442 Ganglion, left hand (principal)
CPT/HCPCS: 76882

== ENCOUNTER 2023-08-22 13:15 | Day surgery (SDC) | payer MEDICAID, SELFPAY ==
[2023-08-22 13:39] VITALS: BP 132/93; PULSE 85; RESP 16; TEMP 36.9; O2SAT 100; BMI 37.8
[2023-08-22] MEDS: Lactated Ringers 1,000 ML 15 ML IV (13:51)
--- NOTE | 2023-08-22 14:30 | IMM_PTH ---
PATIENT: SEFERINO HOLLINGSWORTH LOC: EN U#:[id number] AGE/SX: 52/F ROOM: RE08/22/[address]: Dr. Kris Lam DO : 1970 BED: DIS: 08/22/2023 SPEC #: [id number] RECD: 08/23/23 11:12 STATUS: GEOFF RESuzanne #: [id number] CHRISTIAN: 08/22/23 14:[address]: Kris Lam DEPT: IMMUNOHISTOCHEMISTRY RECD BY: Murtaza Hernandez ENTERED: 08/23/23 11:13 SP TYPE: IMMUNO OTHR DR: Dr. Brittany Estrada MD Tissues: Gastric mucous membrane Procedures: H Pylori (initial) PHYSICIAN & INSTITUTION [place] [address] SPECIMEN INFORMATION: Tissue Source: Gastric antrum biopsy Clinical Info: Crohn's disease, irritable bowel disease Specimen Number: [id number] CPT code: 96149 METHODOLOGY: Deparaffinized sections of prefer/formalin-fixed tissue or PAP/DQ stained slides are incubated with monoclonal/polyclonal antibodies/oligonucleotide probes. Localization is made via biotin free immunoperoxidase method. Appropriate controls are performed and reacted as expected. Results on target cell population are indicated in the following table: RESULTS: ANTIBODY / CLONE RESULT H Pylori (polyclonal) negative These tests were developed and their performance characteristics determined by [facility]. They may not have been cleared or approved by the U.S. Food and Drug Administration. The FDA has determined that such clearance or approval is not necessary. The above immunohistochemical/dualISH markers are ordered and reviewed by the Pathologist. INTERPRETATION: Gastric antrum, biopsy: Negative for Helicobacter pylori organisms. RODY/ 08/24/2023
--- NOTE | 2023-08-22 14:30 | EGD_PTH ---
PATIENT: SEFERINO HOLLINGSWORTH LOC: EN U#:[id number] AGE/SX: 52/F ROOM: RE08/22/[address]: Dr. Kris Lam DO : 1970 BED: DIS: 08/22/2023 SPEC #: [id number] RECD: 08/22/23 18:34 STATUS: GEOFF FAWN #: [id number] CHRISTIAN: 08/22/23 14:[address]: Kris Lam DEPT: SURGICAL PATHOLOGY RECD BY: Zulay Freed ENTERED: 08/23/23 09:24 SP TYPE: EGD BIOPSY SAMEER DR: Dr. Brittany Estrada MD Tissues: Gastric mucous membrane Procedures: Surgery Specimen Level IV HEADER OPERATION: EGD biopsy PRE-OP DIAGNOSIS: Crohns disease, irritable bowel disease TISSUE SUBMITTED: Gastric antrum biopsy MICROSCOPIC DIAGNOSIS Gastric antrum, biopsy: Chronic gastritis with focal active gastritis. See comment. Amanda 08/24/2023 COMMENT The results of immunohistochemistry for Helicobacter pylori will be reported separately ([id number]). MICROSCOPIC DESCRIPTION Slides are reviewed. GROSS DESCRIPTION Received in fixative is one container labeled with the patient's name and designated Gastric antrum biopsy. The specimen consists of two irregular fragments of light rankin soft tissue that in aggregate measure 0.7 x 0.6 x 0.1 cm. The specimen is totally submitted in one cassette. AM/mr 08/23/2023 TC:2 CPT:32045
--- NOTE | 2023-08-22 15:05 | HP.PCM_ITS ---
History and Physical Date of Admission: 08/22/23 SEFERINO HOLLINGSWORTH, is a 52 F who presents to the office today for follow up. Prior workup: ? EGD and colonoscopy [facility] 07.22.20 EGD irregular Zline; gastritis; small hiatal hernia. HPylori negative. ? Colonoscopy internal/external hemorrhoids. No specimens collected. ? US RUQ 06.16.22 hepatic measurement 15.2 with fatty infiltration. ? HIDA 4.08.16 EF <5% WSA OV 07.12.22 to address upper abdominal pain. Reports history of Crohn?s disease with establishment at [facility] for management but is not current. Flynn diagnosis truly biliary dyskinesia and recommended cholecystectomy. Referred to GI. ? Laparoscopic cholecystectomy 07.20.22 following which her oxygen dropped to 74%; reports history of sleep apnea which she does not use her CPAP. WSA .07.17 RUQ pain has resolved and appetite has returned to normal. PCP OV .07.17 noting loose BM with possibility of starting cholestyramine if dietary changes are ineffective. ? Biochemical 08.19.21 CBC, CMP, LFT, triglycerides, lipids, Vit D25, TSH, T3, T4 without pertinent abnormality. ? A1c H7.1 *BGI established 10.07. loose stools 6/day, abdominal pain and nausea since 2009. Previous Crohn?s diagnosis with use of pentasa that was ineffective and discussion of Cholestyramine that was not started. Start dicyclomine and colestipol ? Biochemical CBC, ESR, CMP, LDH, amylase, lipase, cortisol, GAME, MYKEL comp, ANCA, celiac, BRITNEY without pertinent abnormality ? CRP H15.9, Crohn?s (apANCA, Rhona). RAST Class I sesame, egg whole/white, peanut ? Stool calprotectin, elastase, c.difficile, EP WNL. Occult +, lactoferrin +, calprotectin H239 ? Gastric emptying study 10.18.22 58.59 minutes (12-56) Contact 10.25.22 with biochemical workup. Start budesonide. ? MREnterography 11.11.22 small bowel with wall thickening and mucosal hyperenhancement including TI with short segment stricture of distal ileum. Contact 11.16.22 feels budesonide is causing her to be dizzy, Budesonide 6mg. Get biochemical for possible immunosuppressant therapy. ? EGD and colonoscopy 12.01.22 EGD irregular Zline 38cm; gastritis; small polypoid mass of second portion of duodenum; three superficial duodenal ulcers. Metaplasia, H.Pylori neg ? Colonoscopy hemorrhoids; sigmoid ulcers; severe stenosis of IC valve, ulceration with acute/chronic inflammation and fibrinopurulent material. Contact 12.15.22 with results; Start PPI and Carafate. Reminded that biochemical workup will be needed prior to any possible IBD management can be initiated. ? Biochemical Titers, TB WNL Contact 12.27.22 with results and need for skyrizi versus Stelara therapy for her Crohn?s disease. OV 03.13.23 reports some improvement of abdominal pain since starting skyrizi; BM continue to be loose without change. OV 08.17.23 pt reports up to 5 soft / loose bm per day, which she reports is an improvement. Pt continues with Skyrizi and pantoprazole. ROS Const Constitutional: Positive for fatigue and weight change (weight loss and weight gain); No fever(s) ENT ENT: No difficulty swallowing Gastro GI: Positive for abdominal pain and diarrhea; No belching, bloating, change in bowel habits, change in stool character, coffee ground emesis, constipation, cramping, heartburn, difficulty swallowing, feeling full early, excessive flatus, incontinent of stools, Vomiting blood/hematemesis, Blood in stool, loose stools, Black,tarry stools, nausea/dyspepsia, pain with swallowing, vomiting or other Musc Musculoskeletal: Positive for joint pain, back pain, muscle cramps, numbness, tingling, Arthritis, sciatica and restless legs Skin Skin: No yellowing of the eye or itchy eyes Neuro Neurology: Positive for numbness, tingling and restless legs Psych Psychiatric: No anxiety, No depression and Positive for inattentiveness Endo Endocrine: Positive for fatigue and weight change (weight loss and weight gain) Aller/Imm Allergy/Immunologic: No itchy eyes Major/Lymp Hematologic/Lymphatic: No easy bleeding or easy bruising Exam Const General: cooperative, healthy appearing and no acute distress Orientation: alert, awake and oriented x3 HENMT Head: normal to inspection Ears: hearing grossly normal bilaterally and external ears normal Nose: external nose normal Chest Chest palpation & inspection: normal inspection of the chest Resp Effort & Inspection: normal respiratory effort and able to speak in complete sentences Cardio Rate: regular rate Pulses: radial pulses present GI Inspection: normal to inspection Palpation: soft Musc Cervical Spine: normal cervical lordosis and pain with cervical ROM (Particularly w/ extension which exacerbates BUE radicular complaints (L>R)); No cervical muscular tenderness or cervical spinal tenderness Skin General: no rashes or lesions noted Neuro General: patient alert, patient awake, patient oriented x3 and gait normal Cognition: normal cognition Speech: speech normal Gait: normal gait Motor: muscle tone normal throughout Extrem General: normal to inspection Other: left shoulder: Guarded FAROM with palpable tenderness throughout left trapezius. No ACJ palpable tenderness, negative empty can and Apley. BUE: Positive Phalen's left elbow exacerbates left hand paresthesias at approximately 20 seconds, positive Phalen's both wrists (left more so than right) yet negative Tinel's BUE. Right lower extremity: Right knee negative Nicolette and drawer, and unguarded FAROM right wrist/ankle. Right lateral gastrocnemius point tenderness without tissue swelling/tension appreciated upon palpation and negative Homans Psych Appearance: grossly normal Mental Status: mental status grossly normal Mood: congruent mood Affect: normal affect Speech and Movement: speech and movement normal Attitude: cooperative Assessment and Plan Assessment and Plan (1) Crohns disease: Status: Acute Qualifiers: Digestive disease complication type: with fistula Gastrointestinal tract location: small and large intestine Qualified Code(s): K50.813 - Crohn's disease of both small and large intestine with fistula Plan: She was identified as having active Crohn's disease via imaging, blood work, colonoscopy and stool studies. There were multiple ulcers seen in the sigmoid colon and inflammation in the cecum which strictures at the level decisive in the cecal valve. MRCP shows inflammation in the small bowel consistent with active Crohn's disease. She has been on Stelara therapy since January 19. We will continue her at current dose as she is having a lot of improvement with less abdominal pain, cramping, tenesmus, urgency and no episodes of fecal incontinence. We went over a specific inflammatory disease diet we will continue current management. (2) IBS (irritable bowel syndrome): Status: Chronic Qualifiers: Irritable bowel syndrome type: with diarrhea Qualified Code(s): K58.0 - Irritable bowel syndrome with diarrhea Plan: She has a past medical history of IBS with diarrhea versus Crohn's disease affecting the small bowel. Her last upper and lower endoscopy did not show any signs of inflammatory bowel disease. No biopsies were taken for eosinophilic disease or microscopic disease. She is complaining 5-6 watery bowel movements a day. This is worse after undergoing cholecystectomy. She said she had stool testing a long time ago but cannot remember what they tested. She is not undergone any genetic testing for inflammatory bowel disease, vasculitis or any other autoimmune disease that may be contributing to her symptoms. She has not had any functional testing such as gastric emptying, test for small bacterial overgrowth or stool testing for exocrine pancreatic insufficiency. We will perform biochemical work-up and stool studies. (3) Hemorrhoid: Status: Deleted Qualifiers: Hemorrhoid type: unspecified Qualified Code(s): K64.9 - Unspecified hemorrhoids Orders: Orders (4) abdominal pain: We will perform an upper endoscopy to evaluate her upper GI tract because she is still having abdominal pain which is postprandially approximately 5 minutes aft er eating. She was explained alternatives, risk, benefits include not withstanding bleeding, infection, sepsis, perforation, need for emergent surgery . She will have an ASA of 3. EGD 08/22/23 K50.813 - Crohn's disease of both small and large intestine with fistula I have examined the patient and the H&P has been reviewed. There are no clinical changes since date of exam.
--- NOTE | 2023-08-22 15:26 | OP.CCLET_ITS ---
08/22/2023 Brittany Estrada [facility] [address] [place] [address] Re : Upper GI endoscopy procedure for Mariangel Max Dear Dr. Estrada This procedure was performed on Tuesday, August 22, 2023. My impressions and recommendations are as follows: Impressions : - Normal esophagus. - Erythematous mucosa in the pylorus. Biopsied. - No gross lesions in the second portion of the duodenum. Recommendations : - Discharge patient to home. - Resume previous diet. - Continue present medications. - Await pathology results. My findings are described in the full procedure note, which is enclosed. If I can be of further assistance, please feel free to contact me at . Sincerely, Kris Lam, 08/22/2023 3:25:34 PM This report has been signed electronically.
--- NOTE | 2023-08-22 15:26 | OP.EGD_ITS ---
Patient Name: Mariangel Santana Procedure Date: 08/22/2023 3:09 PM Date of : 1970 Age: 52 Procedure: Upper GI endoscopy Indications: Peptic ulcer Providers: Kris Lam DO Referring MD: Brittany Estrada Medicines: Monitored Anesthesia Care Patient Profile: This is a 52 year old female. Refer to note in patient chart for documentation of history and physical. Patient has symptoms of chronic epigastric abdominal pain. Complications: No immediate complications. Procedure: Pre-Anesthesia Assessment: - Prior to the procedure, a History and Physical was performed, and patient medications and allergies were reviewed. The patient is competent. The risks and benefits of the procedure and the sedation options and risks were discussed with the patient. All questions were answered and informed consent was obtained. Patient identification and proposed procedure were verified by the physician in the pre-procedure area. Mental Status Examination: alert and oriented. Airway Examination: normal oropharyngeal airway and neck mobility. Respiratory Examination: clear to auscultation. CV Examination: normal. Prophylactic Antibiotics: The patient does not require prophylactic antibiotics. Prior Anticoagulants: The patient has taken no anticoagulant or antiplatelet agents. ASA Grade Assessment: II - A patient with mild systemic disease. After reviewing the risks and benefits, the patient was deemed in satisfactory condition to undergo the procedure. The anesthesia plan was to use monitored anesthesia care (MAC). Immediately prior to administration of medications, the patient was re-assessed for adequacy to receive sedatives. The heart rate, respiratory rate, oxygen saturations, blood pressure, adequacy of pulmonary ventilation, and response to care were monitored throughout the procedure. The physical status of the patient was re-assessed after the procedure. After obtaining informed consent, the endoscope was passed under direct vision. Throughout the procedure, the patient's blood pressure, pulse, and oxygen saturations were monitored continuously. The Endoscope was introduced through the mouth, and advanced to the second part of duodenum. The upper GI endoscopy was accomplished without difficulty. The patient tolerated the procedure well. Scope In: 3:20:36 PM Scope Out: 3:22:19 PM Total Procedure Duration Time 0 hours 1 minute 43 seconds Findings: The examined esophagus was normal. Localized mildly erythematous mucosa without bleeding was found at the pylorus. Biopsies were taken with a cold forceps for histology. Verification of patient identification for the specimen was done. Estimated blood loss was minimal. Biopsies were taken with a cold forceps for Helicobacter pylori testing. Verification of patient identification for the specimen was done. Estimated blood loss was minimal. No gross lesions were noted in the second portion of the duodenum. Impression: - Normal esophagus. - Erythematous mucosa in the pylorus. Biopsied. - No gross lesions in the second portion of the duodenum. Recommendation: - Discharge patient to home. - Resume previous diet. - Continue present medications. - Await pathology results. Procedure Code(s): --- Professional --- 87086, Esophagogastroduodenoscopy, flexible, transoral; with biopsy, single or multiple CPT copyright 2021 [employer]. All rights reserved. The codes documented in this report are preliminary and upon infantry unit leader review may be revised to meet current compliance requirements. Kris Lam DO 08/22/2023 3:25:34 PM This report has been signed electronically. Number of Addenda: 0 Note Initiated On: 08/22/2023 3:09 PM
[2023-08-22 15:27] VITALS: BP 109/76; BP 132/93; PULSE 92; RESP 16; TEMP 36.5; O2SAT 97
[2023-08-22 15:30] VITALS: BP 109/76; BP 132/93; PULSE 92; RESP 16; O2SAT 97
[2023-08-22 15:35] VITALS: BP 121/80; BP 132/93; PULSE 84; RESP 18; O2SAT 100
[2023-08-22 15:39] VITALS: BP 120/78; BP 132/93; PULSE 74; RESP 18; TEMP 36.3; O2SAT 98
[2023-08-22 15:50] VITALS: BP 132/93
== END 2023-08-22 15:56 | disposition home or self-care (01) ==
LOC: EN 13:16 → AC 13:17
PROVIDERS: PCP Internal Medicine; Referring Provider Internal Medicine; Visit Provider Internal Medicine Gastroenterology
PROC: 0DJ08ZZ Inspection of Upper Intestinal Tract, Via Natural or Artificial Opening Endoscopic (ICD-10-PCS; CPT 43235; principal; 2023-08-22 14:25)
DX: K50.913 Crohn's disease, unspecified, with fistula (principal); K64.9 Unspecified hemorrhoids; R10.9 Unspecified abdominal pain; K31.89 Other diseases of stomach and duodenum; K29.50 Unspecified chronic gastritis without bleeding
CPT/HCPCS: 43239; 88305; 88342; J7120; J2405

== ENCOUNTER 2023-08-24 17:30 | Outpatient (RCR) | payer MEDICAID, SELFPAY ==
--- NOTE | 2023-07-26 15:43 | HP.PTEVAL_ITS ---
Patient's Visit Information Visit Information Visit Information: SEFERINO HOLLINGSWORTH is a 52 year old F referred to Physical Therapy by FREDIS Gonzalez with a diagnosis of strain cervical/shoulder. Date of Evaluation: 07/26/23 Physical Therapist: Levar Navarro, DPT, OCS, CSCS Visit Plan Frequency: 3x /Week Duration: 4-6 Weeks Plan: 3x/week for 3-6 weeks for 1. cervical ret/ext maribell based ROM and progression of forces includeing cervical and thoracic PA mobs grade 4 (monitor centralization of pain and symptoms) 2. STM DTR to L rhomboid knot and stretch rhomboid and UT, MH also OK 3. strength neck and scap and posture to HEP IE: Instruct HEP of cervical ret/ext 10x every two hours and posture with HO Subjective Subjective: L shoulder started hurting now they are both hurting. Arms are going numb also B. Woke up in March with L shoulder neck pain and saw [facility]. Has not improved and saw family doctor. Reason for onset in unknow n. Insurance problems kept her out of here til now. No other treatments except prednison and muscle relaxer in March, felt better with prednisone. X rays neck and shoulder looked good. Pain is L scapula and is constant 6/10 most of time. sleep and lying down is worse. Toss and turns all night. Keeping her up. Feels best lying on back. No longer emplpoyed, retired. Spends day taking care of animals and walking yard, house chores.Can do them all but has to be careful with lifting. Basic ADLS are all getting done. Walks for exercise and this is not effected for her half mile. Pain L scapula pain: Pain Intensity (Out of 10): 6 Pain Intensity Range: 4 and 7 Comment: muscle or pinched nnerve 4: Pain Intensity (Out of 10): 4 Objective Objective: c/s ROM 60 L without pain and 55 R with L sided pain, 35 ext, retraction not painful. UE AROM WFL, some pain with R UE elevation reflexes 2/3 bi adn tri Sensation EU WNL to gross lgiht touch. strength UE 4-/5 without pain or myotomal problems. - c/s compression Tender to pakpation L traps and rhomboids medial to scapula and very tight. repeated motion : 6/10 baseling protrusion: NE flexion: NE P R hand tingles retraction: PDM in shoulder blade, NE, abolishes tingling, decrease to 5/10, increase neck ROM extension: pdm, increases ROM. 80 AROM and central pain . Balance/Special Test Scores Oswestry Neck Score: 21 Goals Goal 1:: Full aROM cervical spine without pain Goal Time Frame: 4-6 Weeks Goal 2:: patient feel 90% better with only central neck pain 1/10 at worst Goal Time Frame: 4-6 Weeks Goal 3:: I appropriate ex/posture to limit future problems Goal Time Frame: 4-6 Weeks Goal 4:: Sleep without waking at night due to pain Goal Time Frame: 4-6 Weeks Goal 5:: oswestry neck 5 or better Goal Time Frame: 4-6 Weeks Rehabilitation Potential Physical Therapy Diagnosis: limited ROM adn pain in neck effecting comfortable function. Rehabilitation Potential: Good Anticipated Interventions Patient/Client Instruction: Educate patient on: Condition and Plan of Care For the Purpose of:: To decrease pain, To increase ROM, To improve nutrient delivery to tissue, To improve muscle performance and motor function, To increase tolerance to activity/condition/position, To improve ability of physical actions for home/community/work/leisure and To improve gait and locomotor functions Therapeutic Exercise to Include: Strength training, Postural training, Flexibilty training, Passive ROM, Active ROM and Maribell Exercises For the Purpose of:: To decrease pain, To decrease swelling/inflammation, To increase ROM, To improve nutrient delivery to tissue, To improve muscle performance and motor function, To increase tolerance to activity/condition/position and To improve ability of physical actions for home/community/work/leisure Manual Therapy Techniques to Include: Trigger point massage, Mobilization, Passive ROM and Soft tissue mobilization For the Purpose of:: To decrease pain and To increase ROM Thermo therapy (hot pack): Yes For the Purpose of:: To decrease pain and To increase ROM Text: Thank you for the opportunity to evaluate your patient. For Medicare and Medicare HMO plans, please review the plan of care and approve it. It will need to be FAXED BACK to us at [phone] for Medicare purposes. For Medicare only, by signing this I certify the plan of care. Please let me know if there are questions or concerns regarding this plan of care. Physician Signature: Date:
--- NOTE | 2023-08-24 17:55 | HP.PTDCSUM ---
Discharge Summary D/C summary: It has been my pleasure to treat SEFERINO HOLLINGSWORTH referred by FREDIS Gonzalez, with the diagnosis of strain cervical/shoulder for a total of 10 visit(s). Discharge Date: 08/24/23 Please see the following information for a summary of their discharge status. Subjective Subjective: Pain in shoulder blades much better to 2/10 intermittent. Worse with stress and working [place]. Lingers. No arm pain but tingling at times when sitting but exercises help it down. Sleep is not great but not due to this problem. HEP: pulling on bands 2x10 once per day. 305 left is numbness in hands which drives her crazy at times but does not limit activities. Pain L scapula pain: Pain Intensity (Out of 10): 0 4: Pain Intensity (Out of 10): 4 Overall Improvement % Improvement: 70 Objective Objective/Function: R 65 rot, L 68 rotation, firm endfeels, ext 80 with some scap pain end range transiently. Good UE AROM and postural focus with cues. Tolerated ex well Goals Goal 1:: Full aROM cervical spine without pain Goal Progress: Goal Met, pinch end Goal 2:: patient feel 90% better with only central neck pain 1/10 at worst Goal Progress: 70% Goal 3:: I appropriate ex/posture to limit future problems Goal Progress: Goal Met Goal 4:: Sleep without waking at night due to pain Goal Progress: Goal Met Goal 5:: oswestry neck 5 or better Goal Progress: Progressing Plan Plan: d/c pt request, no inusrnace D/C Information Discharge Comments: to HEP, pt out of insurance and wishes to try on her own. d/c sentence: If there are questions or concerns regarding this patient's physical therapy, please feel free to call me at [phone]. Thank you for the referral of this patient. Sincerely, Levar Navarro, DPT, OCS, CSCS Balance/Gait/Functional tests Balance/Special Test Scores Oswestry Neck Score: 13 Improvement % Improvement: 70
== END 2023-08-24 19:00 | disposition home or self-care (01) ==
LOC: PT 17:30
PROVIDERS: PCP Internal Medicine; Referring Provider Physician Assistant; Visit Provider Physician Assistant
DX: S16.1XXD Strain of muscle, fascia and tendon at neck level, subsequent encounter (principal); S46.912D Strain of unspecified muscle, fascia and tendon at shoulder and upper arm level, left arm, subsequent encounter
CPT/HCPCS: 97110; 97140; 97161; 97530

== ENCOUNTER → 2024-03-11 | Outpatient (CLI) | payer OTHER, SELFPAY ==
[2024-03-11 15:39] LABS: Erythrocyte Sedimentation Rate 21 mm/hr (0-30)
[2024-03-11 15:41] LABS: Absolute Lymphocyte Count 2.67 X10^3/uL (0.83-4.51); Absolute Neutrophil Count 7.9 X10^3/uL (2.0-7.7); Basophil# 0.09 X10^3/uL; Basophil% 0.8 % (0-1); Eosinophils% 2.6 % (0-5); Hematocrit 42.5 % (37-47); Lymphocyte # 2.67 X10^3/ul (0.83-4.51); Mean Corp Hgb Conc 32.9 g/dL (32-36); Mean Corpuscular Hgb 28.3 pg (27.0-32.0); Monocyte# 0.57 X10^3/uL; Monocyte% 4.9 % (0-10); NRBC Flagged by Analyzer 0 % (0-5); Neutrophil % 68.1 % (47-70); Platelet Count 509 K/mm3 (150-450); RBC Distribution Width CV 12.6 % (11.6-14.6); RBC Distribution Width SD 39.5 fl (35.1-43.9); Red Blood Count 4.94 M/mm3 (4.2-5.4); White Blood Count 11.6 K/mm3 (4.4-11.0)
[2024-03-11 15:43] LABS: POSITIVE COUNT NO; POSITIVE DIFFERENTIAL NO; POSITIVE MORPHOLOGY NO
[2024-03-11 15:52] LABS: Internal QC Validated? YES +Cl - CLEAR BKGD; Monotest Negative (Negative); Record Kit Lot#, Mono 13241033
[2024-03-11 15:54] LABS: ALB/GLOB Ratio 0.7 RATIO (0.9-2.4); AST(SGOT) 13 U/L (15-37); Alanine Aminotransfer ALT/SGPT 22 U/L (13-56); Albumin, Serum 3.1 g/dL (3.2-5.0); Alkaline Phosphatase 106 U/L (45-117); Anion Gap 4 (5-15); BUN 9 mg/dL (7-18); BUN/Creat Ratio 9.2 RATIO (10-20); Calcium,Total 9.3 mg/dL (8.5-10.1); Chloride 105 mmol/L (98-107); Creatinine, Serum 0.98 mg/dL (0.55-1.02); EST Glomerular Filtration Rate 64 mL/min (>60); Est Glom Filt Rate - Afr Amer 77 mL/min (>60); Globulin 4.5 g/dL (2.2-4.2); Glucose 165 mg/dL (74-106); Potassium 3.8 mmol/L (3.5-5.1); Protein, Total 7.6 g/dL (6.4-8.2); Sodium Level 137 mmol/L (136-145)
[2024-03-13 17:07] LABS: CMV Acute Antibody IgM < 30.0 AU/mL (0.0-29.9); CMV Antibody IgG < 0.60 U/mL (0.00-0.59); EBV Acute VCA IgM < 36.0 U/mL (0.0-35.9); EBV-VCA IgG > 600.0 U/mL (0.0-17.9)
== END | disposition home or self-care (01) ==
PROVIDERS: PCP Internal Medicine; Referring Provider Internal Medicine; Visit Provider Internal Medicine
DX: J02.8 Acute pharyngitis due to other specified organisms (principal); B97.89 Other viral agents as the cause of diseases classified elsewhere; D84.9 Immunodeficiency, unspecified
CPT/HCPCS: 36415; 80053; 85025; 85652; 86140; 86308; 86644; 86645; 86664; 86665

== ENCOUNTER → 2024-05-23 | Outpatient (CLI) | payer OTHER, SELFPAY ==
--- NOTE | 2024-05-23 13:05 | RAD_ITS ---
PROCEDURE: CHEST PA AND LATERAL REASON FOR EXAM: Cough for 2 weeks. TECHNIQUE: Frontal and lateral views of the chest. COMPARISON: None. FINDINGS: The cardiothymic contour is normal. No acute consolidation, pleural effusion or pneumothorax. The bones are unremarkable. RAD/Chest PA and Lateral IMPRESSION: No acute consolidation, pleural effusion or pneumothorax. Reading Location: [id number]
== END | disposition home or self-care (01) ==
LOC: MTRAD 13:04
PROVIDERS: PCP Internal Medicine; Referring Provider Physician Assistant Surgical; Visit Provider Physician Assistant Surgical
DX: R05.9 Cough, unspecified (principal)
CPT/HCPCS: 71046

== ENCOUNTER → 2024-06-17 | Outpatient (CLI) | payer OTHER, SELFPAY ==
[2024-06-17 22:59] LABS: ALB/GLOB Ratio 1.4 RATIO (0.9-2.4); AST(SGOT) 19 U/L (<=31); Alanine Aminotransfer ALT/SGPT 22 U/L (<=34); Albumin, Serum 3.9 g/dL (3.5-5.0); Alkaline Phosphatase 86 U/L (35-104); Anion Gap 11 (5-15); BUN 9 mg/dL (4-19); BUN/Creat Ratio 15.7 RATIO (10-20); Calcium,Total 9.2 mg/dL (7.6-11.0); Carbon Dioxide 25.1 mmol/L (21.0-32.0); Chloride 102 mmol/L (98-108); EST Glomerular Filtration Rate 109 (>60); Globulin 2.8 g/dL (2.2-4.2); Glucose 182 mg/dL (70-99); Potassium 4.3 mmol/L (3.3-5.1); Protein, Total 6.8 g/dL (5.9-8.4); Sodium Level 138 mmol/L (133-145); Thyroid Stim Hormone (TSH) 0.783 uIU/mL (0.300-4.200); Total Bilirubin 0.34 mg/dL (0.00-1.30); Vitamin B12 179 pg/mL (180-914); Vitamin D,25 Hydroxy 18.8 ng/mL (30-100)
[2024-06-17 23:50] LABS: Cholesterol 170 mg/dL (<=200); High Density Lipoprotein 69 mg/dL; Low Density Lipoprotein Calc. 81 mg/dL; Triglycerides 99 mg/dL; Very Low Density Lipoprotein 20 mg/dL (5-40); cholesterol:hdl ratio screen 2.47
[2024-06-18 15:30] LABS: Hemoglobin A1c 7.5 % (<=5.6)
== END | disposition home or self-care (01) ==
LOC: LAB 11:43
PROVIDERS: PCP Internal Medicine; Referring Provider Internal Medicine; Visit Provider Internal Medicine
DX: I10 Essential (primary) hypertension (principal); K50.80 Crohn's disease of both small and large intestine without complications; E88.810 Metabolic syndrome; E55.9 Vitamin D deficiency, unspecified; Z13.220 Encounter for screening for lipoid disorders; Z99.89 Dependence on other enabling machines and devices
CPT/HCPCS: 36415; 80053; 80061; 82306; 82607; 83036; 84443

== ENCOUNTER → 2024-08-05 | Outpatient (CLI) | payer OTHER, SELFPAY ==
[2024-08-05 09:04] LABS: Absolute Lymphocyte Count 1.23 X10^3/uL (0.83-4.51); Absolute Neutrophil Count 5.9 X10^3/uL (2.0-7.7); Basophil# 0.06 X10^3/uL; Basophil% 0.7 % (0-1); Eosinophil# 0.32 X10^3/uL; Hemoglobin 12.9 g/dL (12.0-15.0); Lymphocyte # 1.23 X10^3/ul (0.83-4.51); Lymphocyte % 15.3 % (19-41); Mean Corp Hgb Conc 32.3 g/dL (32-36); Mean Corpuscular Hgb 28.1 pg (27.0-32.0); Mean Corpuscular Volume 87.1 fL (81-99); Mean Platelet Vol. 8.6 fl (6.2-12.0); Monocyte# 0.54 X10^3/uL; Monocyte% 6.7 % (0-10); NRBC Flagged by Analyzer 0 % (0-5); Neutrophil # 5.86 X10^3/uL (2.7-7.7); Neutrophil % 72.9 % (47-70); Platelet Count 381 K/mm3 (150-450); RBC Distribution Width SD 40.9 fl (35.1-43.9); Red Blood Count 4.59 M/mm3 (4.2-5.4)
[2024-08-05 09:42] LABS: ALB/GLOB Ratio 1.4 RATIO (0.9-2.4); AST(SGOT) 17 U/L (<=31); Alanine Aminotransfer ALT/SGPT 14 U/L (<=34); Albumin, Serum 3.8 g/dL (3.5-5.0); Alkaline Phosphatase 91 U/L (35-104); Anion Gap 11 (5-15); BUN 9 mg/dL (4-19); BUN/Creat Ratio 12.2 RATIO (10-20); Calcium,Total 8.7 mg/dL (7.6-11.0); Carbon Dioxide 24.6 mmol/L (21.0-32.0); Chloride 103 mmol/L (98-108); Creatinine, Serum 0.71 mg/dL (0.70-1.20); EST Glomerular Filtration Rate 104 (>60); Globulin 2.6 g/dL (2.2-4.2); Glucose 266 mg/dL (70-99); Potassium 3.8 mmol/L (3.3-5.1); Protein, Total 6.4 g/dL (5.9-8.4); Sodium Level 139 mmol/L (133-145); Total Bilirubin 0.66 mg/dL (0.00-1.30)
[2024-08-08 04:07] LABS: QNTFERON TB Mitogen Value > 10.00 IU/mL (.); QNTFERON TB Nil Value 0.07 IU/mL (.); QNTFERON TB1+ Ag Value 0.08 IU/mL (.); QNTFERON TB2+ Ag Value 0.09 IU/mL (.); QNTIFERON TB Positive Criteria Negative (Negative)
== END | disposition home or self-care (01) ==
LOC: LAB 07:57
PROVIDERS: PCP Internal Medicine
DX: K50.813 Crohn's disease of both small and large intestine with fistula (principal)
CPT/HCPCS: 36415; 80053; 85025; 86140; 86480

== ENCOUNTER → 2024-08-08 | Outpatient (CLI) | payer OTHER, SELFPAY ==
[2024-08-11 03:08] LABS: Pancreatic Elastase, Fecal 502 (>200)
[2024-08-12 16:09] LABS: Calprotectin, Stool 168 ug/g (0-120)
== END | disposition home or self-care (01) ==
LOC: LABSPEC 10:39
PROVIDERS: PCP Internal Medicine
DX: K50.813 Crohn's disease of both small and large intestine with fistula (principal)
CPT/HCPCS: 82653; 83993